=== PATIENT | male | born 1950 | race Caucasian/White ===

== ENCOUNTER 2019-08-14 12:47 | Outpatient (CLI) | payer OTHER, SELFPAY ==
--- NOTE | 2019-08-14 | CT_ITS ---
WS: [id number] CT NECK TECHNIQUE: Contrast-enhanced CT of the neck with coronal and sagittal reformatted images. CLINICAL INFORMATION: OTHER LESIONS OF ORAL MUCOSA COMPARISON: None. DLP: 3267.[address] scans at [facility] use at least one of these dose optimization techniques: automat ed exposure control; mA and/or kV adjustment per patient size (includes targeted exams where dose is matched to clinical indication); or iterative reconstruction. FINDINGS: Submandibular glands are normal. Parotid glands are normal. Tongue base is normal in appearance. Norm al posterior nasopharynx. Tonsillar calcifications. No evidence of supraglottic or glottic mass. Norm al thyroid gland. Normal parapharyngeal fat. No cervical lymphadenopathy. Mild chronic emphysematous changes in the [place] g apices. Moderate spondylitic changes with disc osteophyte complexes worse at C5-C7. Partially visua lized intracranial contents are normal. Mastoid air cells are well aerated. Paranasal sinuses are wel l aerated. CT/CT neck w con* 17912 IMPRESSION: 1. Salivary glands are normal. 2. No evidence of supraglottic or glottic mass. 3. No cervical lymphadenopathy. 4. Posterior nasopharynx and tongue base are normal.
[2019-08-14] MEDS: iohexol 300 mg/mL 100 mL Btl IV (13:22)
== END 2019-08-14 12:48 | disposition home or self-care (01) ==
PROVIDERS: Family Provider Internal Medicine; PCP Internal Medicine; Visit Provider Specialist
DX: K13.79 Other lesions of oral mucosa (principal)
CPT/HCPCS: 70491; Q9967

== ENCOUNTER 2019-08-31 13:49 | Inpatient (IN) | payer OTHER, MEDICARE, SELFPAY ==
[2019-08-31] VITALS (17 sets, daily range): BP systolic 82–131; BP diastolic 41–81; PULSE 47–146; RESP 14–26; TEMP 36.4–36.8; O2SAT 71–100; BMI 52.3
--- NOTE | 2019-08-31 13:59 | XR_ITS ---
WS: [id number] Portable AP upright chest, 08/31/2019 Clinical Data: bradycardia Comparison: Portable chest, 01/23/2014. Findings: No nodules, masses or effusions are seen. The heart is normal. The pulmonary vascularity is not increased. No pneumonia or pneumothorax is seen. There is a resuscitation paddles overlying the left lower chest. There is a monitor device overlying the medial midportion of the right chest. There is mild tortuosity of the aortic arch. XR/XR chest 1V portable 30630 Impression: Atherosclerosis.
[2019-08-31] MEDS: sodium chloride 0.9% 1,000 ML 999 ML IV (14:00)
--- NOTE | 2019-08-31 14:00 | ECG_ITS ---
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 Measurements Intervals [place] Rate: 140 P: [place]: -1 QRS: 43 QRSD: 91 T: 65 QT: 330 QTc: 505 Interpretive Statements ATRIAL FIBRILLATION WITH RAPID VENTRICULAR RESPONSE NONSPECIFIC ST & T-WAVE ABNORMALITY ABNORMAL RHYTHM ECG INTERPRETATION BASED ON A DEFAULT AGE OF 40 YEARS Compared to ECG 01/23/2014 07:54:02 T-wave abnormality now present Sinus bradycardia no longer present ST (T wave) deviation no longer present Electronically Signed On 08-31-2019 16:41:02 CDT by Bradley Weldon M.D. [id number] [email or web address]
--- NOTE | 2019-08-31 14:11 | ED_ITS ---
HPI - Seizure General: Chief Complaint: Chest Pain Stated Complaint: SEIZURES Time Seen by Provider: 08/31/19 13:49 History of Present Illness: HPI Narrative: This is a 69-year-old man presenting to the emergency department by ambulance today. EMS reports that they were called for multiple seizures. They witnessed a seizure that was associated with an episode of asystole on the monitor for approximately 5 to 10 seconds. The seizure is described as the patient becoming unresponsive and stiff, pulling in his arms and hands. His heart rate came up and he woke up with no intervention. He was not postictal afterward. The patient says this just started happening this morning. 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 He has had that for about 10 years. It is gradually been getting worse and causes him to have very severe pain in the back of his mouth on his tongue. He sees Dr. Schulte for this and recently had a CT scan showing no tumor. He denies any history of heart problems. On review of prior records he did have a Holter monitor in 2014 due to episodes of dizziness. He was in a sinus rhythm with no pauses at that time. He says he has tried pain medicine for the pain in his tongue but it has not helped at all. He is being referred to a neurologist to see if seizure medicine works but he has not been on anything yet. He is having very severe pain there today and that is actually his only complaint. complaint: seizure Onset (ago): day(s) (Today) Description of Episode: loss of consciousness and tonic-clonic movement Associated symptoms: Deny chest pain, chills, fever(s) or malaise Review of Systems General: Reports: 10 or more systems reviewed and unremarkable except in HPI and below Const: Denies: fever(s), chills, fatigue or malaise Eyes: Denies: change in vision ENMT: Reports: other (Severe tongue pain. He does say he has difficulty swallowing but it is only related to pain.); Denies: odynophagia Card: Denies: chest pain or swelling of feet/ankles Resp: Denies: dyspnea, productive cough or non-productive cough GI: Denies: abdominal pain, nausea or vomiting : Denies: flank pain Musc: Denies: neck pain or back pain Skin/Breast: Denies: rash Neuro: Denies: headache(s), numbness in extremities or weakness in extremities Jaya/Lymph: Denies: easy bruising or easy bleeding PFSH ED PFSH: Medical History Glossopharyngeal neuralgia Vaso vagal episode Surgical History H/O hernia repair Physical Exam Const: COMMON NORMALS: patient oriented x3, no limitations and alert GENERAL APPEARANCE: cooperative and in distress HENMT: HEAD & SCALP: normal to inspection FACE & SINUS: normal facial exam Eye: GENERAL EYE: appearance normal, both eyes and all related structures Neck/C-Spine: COMMON NORMALS: supple, no meningeal signs and no JVD Chest: COMMONS NORMALS: normal inspection of the chest Resp: COMMON NORMALS: normal respiratory effort, No use of accessory muscles and clear to auscultation bilaterally AUSCULTATION: clear to auscultation bilaterally Cardio: COMMON NORMALS: no JVD and No murmurs present (Cardio) OTHER: Rate and rhythm changed from bradycardia as low as 32 tachycardia in the 150s. GI: COMMON NORMALS: Normal to inspection, nondistended, normoactive bowel sounds present, Soft to palpation and non-tender INSPECTION: Yes normal to inspection AUSCULTATION: Yes normoactive bowel sounds PALPATION: Yes Soft to palpation Back/Pelvis: COMMON NORMALS: thoracic and lumbar spine normal to inspection Extremity: COMMON NORMALS: normal to inspection Neuro: COMMON NORMALS: patient oriented x3, moves all extremities, no focal motor deficits and no sensory deficits noted SENSORIUM/ORIENTATION: Yes alert MENINGEAL SIGNS: Yes no meningeal signs Psych: COMMON NORMALS: mental status grossly normal, cooperative and normal affect Skin: COMMON NORMALS: no rashes or lesions noted and turgor normal GENERAL SKIN EXAM: no rashes or lesions noted and turgor normal Course ED course: Troponin was negative at 14. Second troponin is pending. Lactate was 1.8. Magnesium 1.9. CBC was normal. Chemistry was normal except for a slightly low CO2 at 19. Chest x-ray unremarkable. Will consult cardiology and likely admit to the hospitalist. Reevaluation(s): Reevaluation #1: The patient was noted to have changed back to a sinus rhythm. His rate was approximately 49-50. He seemed to be resting quietly and then unexpectedly had a pause of about 12 seconds of asystole. During that time he became stiff and had grunting respirations. He spontaneously went back into a rapid A. fib. Now, about 5 minutes later he is back in a sinus bradycardia. He is admitted to the ICU and is waiting for transport. Time: 16:16 Reevaluation #2: Patient had a couple of episodes similar to the one described in reevaluation #1. These were caught on the monitor. Dr. Abel came to the ED to see the patient and he is being admitted to the hospitalist to the ICU. Prior to going to the ICU the patient reported that his pain had completely resolved and he was very grateful for that. Vital Signs: Vital signs: Vital Signs Temperature 98.3 F 08/31/19 18:54 Pulse Rate 65 08/31/19 21:14 Respiratory Rate 16 08/31/19 21:14 Blood Pressure 104/57 08/31/19 21:14 Pulse Oximetry 97 08/31/19 21:14 MDM - Seizure MDM Narrative: Medical decision making narrative: Patient in obvious pain from his glossopharyngeal neuralgia. Heart rate going between 30 and 150 in the ED. He has not had any further episodes of clinically significant pauses and no further seizure type activity. However he did have multiple episodes at home and one was witnessed by EMS. He does not have a history of cardiac problems. He is in atrial fibrillation today. I am treating him with fosphenytoin IV for his neuralgia hoping that that will help. I am also can give him some hydromorphone for pain. Is not clear exactly how these 2 diagnoses are related but he will get a cardiology consultation for his new onset A. fib and apparently sick sinus syndrome. Lab Data: Labs: Lab Results 08/31/19 08/31/19 08/31/19 Range/Units 14:08 14:08 14:08 WBC 5.3 (4.0-10.0) 10^3/ uL RBC 4.93 (4.1-5.3) 10^6/u L Hgb 14.5 (11.7-16.6) g/dL Hct 46.2 (42.0-52.0) % MCV 93.7 (80-94) fL MCH 29.4 (28.0-34.0) pg MCHC 31.4 (30.0-36.0) g/dL RDW 12.8 (12.1-15.1) % Plt Count 159 (130-400) 10^3/c mm MPV 9.9 (7.4-10.4) fL Neut % (Auto) 68.5 % Lymph % (Auto) 28.5 % Beauregard % (Auto) 2.4 % Eos % (Auto) 0.0 % Baso % (Auto) 0.4 % Neut # (Auto) 3.65 (1.8-7.7) 10^3/u L Lymph # (Auto) 1.5 (0.8-4.8) 10^3/u L Beauregard # (Auto) 0.1 L (0.2-0.9) 10^3/u L Eos # (Auto) 0.0 (0.0-0.8) 10^3/u L Baso # (Auto) 0.0 (0.0-0.1) 10^3/u L Nucleated RBC % (a uto) 0 % Nucleated RBCs # 0.0 /100WBC PT 13.50 H (10.5-13.3) SECO NDS INR 1.00 (0.8-1.2) Sodium 139 (136-145) mmol/L Potassium 4.0 (3.5-5.1) mmol/L Chloride 106 (98-107) mmol/L Carbon Dioxide 19 L (22-29) mmol/L Anion Gap 18.0 (5-19) BUN 11 (8-23) mg/dL Creatinine 1.0 (0.7-1.2) mg/dL GFR Calculation 73.9 L (90-130) mL/min Glucose 108 (65-115) mg/dL Calculated Osmolal ity 285 (285-295) mOsm/k g Lactate (0.5-2.2) mmol/L Calcium 9.5 (8.5-10.5) mg/dL Magnesium 1.9 (1.7-2.3) mg/dL Iron (59-158) ug/dL TIBC mcg/dl % Saturation (20-50) % Unsat Iron Binding (112-347) ug/dL Total Bilirubin 0.7 (0.15-1.2) mg/dL AST 16 (0-40) U/L ALT 15 (0-41) U/L Alkaline Phosphata se 57 (40-130) IU/L Troponin T Baselin e (0-15) ng/L NT-Pro-B Natriuret Pep (0-125) pg/mL Total Protein 6.5 L (6.6-8.7) g/dL Albumin 4.2 (3.5-5.2) g/dL Globulin 2.3 (1.3-4.6) g/dL Lipase 18 (13-60) U/L TSH (0.27-4.20) uIU/ mL Prolactin (4.0-15.2) ng/mL 08/31/19 08/31/19 08/31/19 Range/Units 14:08 14:08 14:08 WBC (4.0-10.0) 10^3/ uL RBC (4.1-5.3) 10^6/u L Hgb (11.7-16.6) g/dL Hct (42.0-52.0) % MCV (80-94) fL MCH (28.0-34.0) pg MCHC (30.0-36.0) g/dL RDW (12.1-15.1) % Plt Count (130-400) 10^3/c mm MPV (7.4-10.4) fL Neut % (Auto) % Lymph % (Auto) % Beauregard % (Auto) % Eos % (Auto) % Baso % (Auto) % Neut # (Auto) (1.8-7.7) 10^3/u L Lymph # (Auto) (0.8-4.8) 10^3/u L Beauregard # (Auto) (0.2-0.9) 10^3/u L Eos # (Auto) (0.0-0.8) 10^3/u L Baso # (Auto) (0.0-0.1) 10^3/u L Nucleated RBC % (a uto) % Nucleated RBCs # /100WBC PT (10.5-13.3) SECO NDS INR (0.8-1.2) Sodium (136-145) mmol/L Potassium (3.5-5.1) mmol/L Chloride (98-107) mmol/L Carbon Dioxide (22-29) mmol/L Anion Gap (5-19) BUN (8-23) mg/dL Creatinine (0.7-1.2) mg/dL GFR Calculation (90-130) mL/min Glucose (65-115) mg/dL Calculated Osmolal ity (285-295) mOsm/k g Lactate 1.8 (0.5-2.2) mmol/L Calcium (8.5-10.5) mg/dL Magnesium (1.7-2.3) mg/dL Iron 65 (59-158) ug/dL TIBC 202 mcg/dl % Saturation 32.1 (20-50) % Unsat Iron Binding 137 (112-347) ug/dL Total Bilirubin (0.15-1.2) mg/dL AST (0-40) U/L ALT (0-41) U/L Alkaline Phosphata se (40-130) IU/L Troponin T Baselin e 14 (0-15) ng/L NT-Pro-B Natriuret Pep (0-125) pg/mL Total Protein (6.6-8.7) g/dL Albumin (3.5-5.2) g/dL Globulin (1.3-4.6) g/dL Lipase (13-60) U/L TSH (0.27-4.20) uIU/ mL Prolactin 16.07 H (4.0-15.2) ng/mL / Range/Units 14:08 WBC (4.0-10.0) 10^3/ uL RBC (4.1-5.3) 10^6/u L Hgb (11.7-16.6) g/dL Hct (42.0-52.0) % MCV (80-94) fL MCH (28.0-34.0) pg MCHC (30.0-36.0) g/dL RDW (12.1-15.1) % Plt Count (130-400) 10^3/c mm MPV (7.4-10.4) fL Neut % (Auto) % Lymph % (Auto) % Beauregard % (Auto) % Eos % (Auto) % Baso % (Auto) % Neut # (Auto) (1.8-7.7) 10^3/u L Lymph # (Auto) (0.8-4.8) 10^3/u L Beauregard # (Auto) (0.2-0.9) 10^3/u L Eos # (Auto) (0.0-0.8) 10^3/u L Baso # (Auto) (0.0-0.1) 10^3/u L Nucleated RBC % (a uto) % Nucleated RBCs # /100WBC PT (10.5-13.3) SECO NDS INR (0.8-1.2) Sodium (136-145) mmol/L Potassium (3.5-5.1) mmol/L Chloride (98-107) mmol/L Carbon Dioxide (22-29) mmol/L Anion Gap (5-19) BUN (8-23) mg/dL Creatinine (0.7-1.2) mg/dL GFR Calculation (90-130) mL/min Glucose (65-115) mg/dL Calculated Osmolal ity (285-295) mOsm/k g Lactate (0.5-2.2) mmol/L Calcium (8.5-10.5) mg/dL Magnesium (1.7-2.3) mg/dL Iron (59-158) ug/dL TIBC mcg/dl % Saturation (20-50) % Unsat Iron Binding (112-347) ug/dL Total Bilirubin (0.15-1.2) mg/dL AST (0-40) U/L ALT (0-41) U/L Alkaline Phosphata se (40-130) IU/L Troponin T Baselin e (0-15) ng/L NT-Pro-B Natriuret Pep 990 H (0-125) pg/mL Total Protein (6.6-8.7) g/dL Albumin (3.5-5.2) g/dL Globulin (1.3-4.6) g/dL Lipase (13-60) U/L TSH 1.32 (0.27-4.20) uIU/ mL Prolactin (4.0-15.2) ng/mL Discharge Plan Discharge Patient Disposition: Admitted As Inpatient Admit Provider: Ulises Valle Clinical Impression: Cardiac syncope, Glossopharyngeal neuralgia Condition: Stable Referrals: Andrei Sagastume [Primary Care Provider] - Discharge Date/Time: 08/31/19 18:55 Coding Level of Care Code ED Swimming Professor for Chg Fwd Exam Comprehensive
[2019-08-31 14:14] LABS: Basophils % 0.4 %; Hematocrit 46.2 % (42.0-52.0); Hemoglobin 14.5 g/dL (11.7-16.6); Lymphocytes # 1.5 10^3/uL (0.8-4.8); Lymphocytes % 28.5 %; Mean Corpuscular HGB Conc 31.4 g/dL (30.0-36.0); Mean Corpuscular Hemoglobin 29.4 pg (28.0-34.0); Mean Corpuscular Volume 93.7 fL (80-94); Mean Platelet Volume 9.9 fL (7.4-10.4); Monocytes # 0.1 10^3/uL (0.2-0.9); Monocytes % 2.4 %; Neutrophils # 3.65 10^3/uL (1.8-7.7); Neutrophils % 68.5 %; Nucleated Red Blood Cells % 0 %; Platelet Count 159 10^3/cmm (130-400); Red Blood Count 4.93 10^6/uL (4.1-5.3); Red Cell Distribution Width 12.8 % (12.1-15.1); White Blood Count 5.3 10^3/uL (4.0-10.0)
--- NOTE | 2019-08-31 14:22 | PC.NURSE ---
Patient connected to zoll monitor with combo pads.
[2019-08-31] MEDS: fosphenytoin 1,000 MG in sodium chloride 0.9% (100 ml) 100 ML 200 MG IV (14:28)
--- NOTE | 2019-08-31 14:28 | PC.NURSE ---
Read and agree with assessment.
[2019-08-31 14:31] LABS: Alanine Aminotransferase 15 U/L (0-41); Albumin Level 4.2 g/dL (3.5-5.2); Alkaline Phosphatase 57 IU/L (40-130); Aspartate Amino Transferase 16 U/L (0-40); Blood Urea Nitrogen 11 mg/dL (8-23); Calcium 9.5 mg/dL (8.5-10.5); Carbon Dioxide 19 mmol/L (22-29); Chloride 106 mmol/L (98-107); Globulin 2.3 g/dL (1.3-4.6); Glomerular Filtration Rate 73.9 mL/min (90-130); Glucose 108 mg/dL (65-115); Lactate (Lactic Acid level) 1.8 mmol/L (0.5-2.2); Lipase 18 U/L (13-60); Magnesium 1.9 mg/dL (1.7-2.3); Osmolality Calculated 285 mOsm/kg (285-295); Sodium 139 mmol/L (136-145); Total Bilirubin 0.7 mg/dL (0.15-1.2); Total Protein 6.5 g/dL (6.6-8.7)
[2019-08-31 14:34] LABS: Troponin(5th) Baseline 14 ng/L (0-15)
[2019-08-31] MEDS: ondansetron 2 mg/ML SDV 2 mL 4 MG IVP (14:54)
[2019-08-31] MEDS: HYDROmorphone 1 mg/mL INJ 1 mL 0.5 MG IVP ×2 (14:54→20:33)
--- NOTE | 2019-08-31 15:57 | USCV_ITS ---
Mohan Monzon Age: 69 Gender: M : 1950 Exam Date: 08/31/2019 16:08 Ordering Phys: Ulises Valle MD Technologist: Jeffrey Ospina Exam Location: [facility] [place] Indication: AFIB WITH PAUSE BP: / HR: Rhythm: Sinus Technical Quality: Very technically difficult study MEASUREMENTS (Male / Female) Normal Values FINDINGS Left Ventricle Right Ventricle Right Atrium Left Atrium Mitral Valve Aortic Valve Tricuspid Valve Pulmonic Valve Pericardium Aorta CONCLUSIONS Please note that this is a limited echo due to poor quality and suboptimal images therefore accurate detail of the study is not possible 1-Low normal left ventricle size and ejection fraction estimated ejection fraction 50%. 2-There is no pericardial effusion. 3-There are no prior echocardiogram studies to compare. Tab Rivas MD (Electronically Signed) Final Date: 31 August 2019 20:09 S
--- NOTE | 2019-08-31 16:00 | ECG_ITS ---
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 Measurements Intervals [place] Rate: 135 P: SD: -1 QRS: 66 QRSD: 98 T: 82 QT: 318 QTc: 477 Interpretive Statements ATRIAL FIBRILLATION WITH RAPID VENTRICULAR RESPONSE NONSPECIFIC ST & T-WAVE ABNORMALITY ABNORMAL RHYTHM ECG Compared to ECG 08/31/2019 14:12:53 No significant changes Electronically Signed On 08-31-2019 16:44:07 CDT by Bradley Weldon M.D. [id number]
[2019-08-31 16:38] LABS: NT Pro B Type Natriuretic Pept 990 pg/mL (0-125); Thyroid Stimulating Hormone 1.32 uIU/mL (0.27-4.20)
[2019-08-31 17:12] LABS: Iron 65 ug/dL (59-158); Percent Saturation 32.1 % (20-50); Prolactin 16.07 ng/mL (4.0-15.2); Total Iron Binding Capacity 202 mcg/dl; Unsaturated Iron Binding 137 ug/dL (112-347)
--- NOTE | 2019-08-31 18:18 | PM.HP ---
Providers/Chief Complaint Admitting Physician: Ulises Valle MD Primary Care Provider: Andrie Sagastume Chief Complaint: SEIZURES History of Present Illness Mohan Monzon is a 69 year old male with no significant past medical history other than glossopharyngeal neuralgia which is been going on for 10 years but was recently diagnosed from an ENT doctor last week, history of vasovagal episode in 2013, history of orthostatic hypotension being managed conservatively, tinnitus, dry mouth. Patient states he was at his baseline health till today morning when while he was sitting in his chair trying to wear his shoes when he thinks he had passed out because he had dropped the glass from his hand and did not realize. After that patient went to bathroom and laid on the bed to rest. As per the patient his saw him having jittery movements while in the bed which he does not remember. At that time they called the EMS for patient to be brought to the ER. While being transported to the ER patient had an episode of 10-second asystole while in the ambulance which is also associated with jittery movements. Patient did not require any chest compressions or medications and came back in normal sinus rhythm. While in the ER patient went into atrial fibrillation with rapid ventricular response of heart rate going into 130s fluctuating down to 50s. Most of the episodes of bradycardia were preceded by sharp pain in his jaw. He denies of having any nausea, vomiting, dizziness, palpitation, diaphoresis, exertional dyspnea, exertional angina. While in the ER patient also had an episode of asystole which lasted for around 10 to 12 seconds and came back to normal sinus rhythm with heart rate of 50s. Patient did not require any medication but was unresponsive during that episode as well. During examination patient denies of having any nausea, vomiting, headache, shortness of breath, flulike symptoms, recent fevers, recent exposure to COVID-19. Review of Systems General: Reports: 10 or more systems reviewed and unremarkable except in HPI and below Const: Denies: fever(s), chills, body aches, change in appetite, change in weight, malaise, night sweats, diaphoresis, change in sleep pattern, daytime sleepiness or snoring Eyes: Denies: change in vision, blurry vision, photophobia, eye discomfort or eye discharge ENMT: Reports: dry mouth and tinnitus; Denies: throat pain, enlarged tonsils, hoarseness, mouth pain, oral sores, nasal congestion or post nasal drip Card: Reports: irregular heart rhythm; Denies: chest pain, palpitations, edema, swelling of feet/ankles, lightheadedness, syncope, pre-syncope, dyspnea on exertion, orthopnea, leg pain with exertion or acrocyanosis Resp: Denies: dyspnea, productive cough, non-productive cough, wheezing, stridor, pain on inspiration, change in phlegm color, hemoptysis or chest congestion GI: Denies: abdominal pain, nausea, vomiting, hematemesis, coffee ground emesis, dysphagia, heartburn, diarrhea, constipation, bloating, GI cramping, change in bowel habits, pain on defecation, hematochezia or melena : Denies: flank pain, difficulty urinating, dysuria, urinary frequency, urinary urgency, urinary hesitancy, urinary dribbling, difficulty starting urination, change in urine stream, nocturia or hematuria Musc: Denies: neck pain, back pain, extremity pain, joint pain, joint swelling, joint redness, joint stiffness or limited range of motion Neuro: Denies: headache(s), numbness in extremities, weakness in extremities, sensory changes, lack of coordination, difficulty walking, frequent falls, dizziness, vertigo, confusion, Slurred speech present, difficulty communicating thoughts or seizure-like activity Psych: Denies: anxiety, depression, mood swings, panic attacks, hopelessness or irritability Endo: Denies: polyuria, polydipsia, tired all the time, cold intolerance, excessive sweating, flushing or heat intolerance Jaya/Lymph: Denies: easy bruising or easy bleeding All/Imm: Denies: tongue swelling, facial swelling or acute wheezing Medications/Allergies Home Medications Medication Instructions Recorded Confirmed Last Taken Type amitriptyline 25 mg PO BEDTIME PRN 08/31/19 08/31/19 Unknown History cyclobenzaprine 10 mg PO TID PRN 08/31/19 08/31/19 Unknown History hydrocodone-acetaminophen 15 ml PO Q5H PRN 08/31/19 08/31/19 08/29/19 History tramadol [Ultram] 100 mg PO QID PRN 08/31/19 08/31/19 Unknown History Allergies Allergy/AdvReac Type Severity Reaction Status Date / Time fluticasone [From Flonase] Allergy Unknown Verified 08/31/19 14:44 prednisone Allergy Unknown Verified 08/31/19 14:44 PFSH Acute PFSH: Medical History Glossopharyngeal neuralgia Vaso vagal episode Surgical History H/O hernia repair Vitals/I&O/Wt Last Vital Signs Temp 97.6 F 08/31/19 14:15 Pulse 53 L 08/31/19 14:20 Resp 18 08/31/19 14:20 BP 112/56 08/31/19 14:20 Pulse Ox 71 L 08/31/19 14:20 Weight last 48 hrs Weight 180 kg Physical Exam Narrative: EXAM NARRATIVE: General: No acute distress, AO x3 HEENT: PERRLA, pupils bilaterally equal and reactive Chest: Normal vesicular breath sounds, no added sounds, equal good air entry bilaterally CVS: S1-S2 irregularly irregular, tachycardia, no gallops, no rubs Abdomen: Soft, nontender, no organomegaly, bowel sounds present Neuro: No focal deficits, no facial deformity, AO x3, power 5/5 in all limbs Data : 08/31/19 14:08 08/31/19 14:08 A&P Assessment and plan (1) Cardiac syncope: Status: Acute (2) Cardiac asystole: Status: Acute (3) Afib: Status: Acute (4) Glossopharyngeal neuralgia: Status: Acute Additional A&P Information Syncope: Most likely cardiac. Patient did have asystole while in the ambulance and also in the ER. Patient has history of vasovagal hypersensitivity. Patient has been complaining of glossopharyngeal pain which has been getting worse. Continue classroom monitor. Admit to ICU. Check troponins, TSH, proBNP echocardiogram to rule out structural abnormalities. If patient continues to have these episodes will have to discuss with cardiology regarding possible pacemaker implantation. Less likely that there was neurological. Most likely seizure-like activity because of asystole. Check prolactin. Patient was given fosphenytoin in the ER which would also help him with glossopharyngeal neuralgia. We will continue with oral phenytoin for now 200 mg daily. A. fib: Patient now running A. fib with RVR worsening into bradycardia with some pauses. For now we will hold off on any antiarrhythmics or node blocking agent. We will continue to monitor on telemetry. Code cart at bedside. 500 cc bolus followed with normal saline 100 cc/h. If patient continues to have A. fib for more than 48 hours will more likely have to discuss about anticoagulation. Patient does not have any history of tachybradycardia syndrome. Cardiology consult has been placed by ER. We will follow-up recommendations from Dr. Rivas. Glossopharyngeal neuralgia: Chronic problem. Because the event could be vasovagal will have a good pain control. Dilaudid 0.5 mg every 4 hours as needed, tramadol 100 mg p.o. every 4 hours as needed. Check HbA1c, TSH, lipid panel, iron panel. Full code. N.p.o. for now given the fact that patient might have's asystole again. Lovenox for DVT prophylaxis. Attestations Medical Necessity Statement*: More than 2 midnights for syncope, asystole Critical Care Time: Cardiac asystole, atrial fibrillation Critical Care Time (min): 80 Coding Level of Care Code Acute Animal Laboratory Technician for [facility] Fwd Diagnoses Cardiac syncope R55 Cardiac asystole I46.9 Afib I48.91 Glossopharyngeal neuralgia G52.1
--- NOTE | 2019-08-31 19:00 | PC.NURSE ---
Received report from ZEINA Toribio. Patient was brought to room by [facility] oysterman at 1850. Patient is stable and resting comfortably. Patient is having frequent episodes of extreme pain in mouth that lasts from 5-10 seconds. Vitals signs are remaining stable at this time. Will continue to monitor.
--- NOTE | 2019-08-31 19:07 | PM.CONSULT ---
Providers/Reason For Consult Consulting Physican/Specialty*: Cardiology Reason for Consult*: Sinoatrial failure Syncope Bradycardia New onset of A. fib Attending Physician: Ulises Valle MD Primary Care Provider: Andrei Sagastume History of Present Illness History of Present Illness Mohan Monzon is a 69 year old male past medical history significant for glossopharyngeal neuralgia, history of vasovagal syncope last one was in 2013, denies any prior history of coronary artery disease atrial fibrillation or heart block had episode of syncope while trying to drink water. He woke up and felt very fatigued. He laid down in the bed when his noticed jerking movements and called 911. According to EMS patient had seizure-like activity on telemetry monitoring he was noted to have 10 to 15 seconds of asystole. He was also noted to be in A. fib with RVR in the ER which is new for him. Patient had few episodes of glossopharyngeal neuralgia which leads to bradycardia as per ER staff. There is also documented 15-second asystole with loss of conscious noted in the ER, strip was also recorded however it was preceded with back of the tongue pain. When I was talking to the patient he had couple of episodes of neuralgia which slows his heart rate into 50s currently is in sinus rhythm. At one point heart rate was into 150s in the ER he was given IV fluid which slowed him down and now he is in sinus rhythm with heart rate of 70 bpm. Patient denies history of hypothyroidism ygaf-ypt-hydcccl medications history of tick bite and history of prior bradycardia's. Review of Systems General: Reports: 10 or more systems reviewed and unremarkable except in HPI and below Const: Denies: fever(s), chills, body aches, change in appetite, change in weight, fatigue, malaise, night sweats, diaphoresis, change in sleep pattern, daytime sleepiness or snoring Eyes: Denies: change in vision, blurry vision, photophobia, eye discomfort or eye discharge ENMT: Reports: dry mouth, tinnitus and other (Severe tongue pain. He does say he has difficulty swallowing but it is only related to pain.); Denies: throat pain, enlarged tonsils, odynophagia, hoarseness, mouth pain, oral sores, nasal congestion or post nasal drip Card: Reports: irregular heart rhythm; Denies: chest pain, palpitations, edema, swelling of feet/ankles, lightheadedness, syncope, pre-syncope, dyspnea on exertion, orthopnea, leg pain with exertion or acrocyanosis Resp: Denies: dyspnea, productive cough, non-productive cough, wheezing, stridor, pain on inspiration, change in phlegm color, hemoptysis or chest congestion GI: Denies: abdominal pain, nausea, vomiting, hematemesis, coffee ground emesis, dysphagia, heartburn, diarrhea, constipation, bloating, GI cramping, change in bowel habits, pain on defecation, hematochezia or melena : Denies: flank pain, difficulty urinating, dysuria, urinary frequency, urinary urgency, urinary hesitancy, urinary dribbling, difficulty starting urination, change in urine stream, nocturia or hematuria Musc: Denies: neck pain, back pain, extremity pain, joint pain, joint swelling, joint redness, joint stiffness or limited range of motion Skin/Breast: Denies: rash Neuro: Denies: headache(s), numbness in extremities, weakness in extremities, sensory changes, lack of coordination, difficulty walking, frequent falls, dizziness, vertigo, confusion, Slurred speech present, difficulty communicating thoughts or seizure-like activity Psych: Denies: anxiety, depression, mood swings, panic attacks, hopelessness or irritability Endo: Denies: polyuria, polydipsia, tired all the time, cold intolerance, excessive sweating, flushing or heat intolerance Jaya/Lymph: Denies: easy bruising or easy bleeding All/Imm: Denies: tongue swelling, facial swelling or acute wheezing Meds/Allergies Home Medications and Allergies Home Medications Medication Instructions Recorded Confirmed Last Taken Type amitriptyline 25 mg PO BEDTIME PRN 08/31/19 08/31/19 Unknown History cyclobenzaprine 10 mg PO TID PRN 08/31/19 08/31/19 Unknown History hydrocodone-acetaminophen 15 ml PO Q5H PRN 08/31/19 08/31/19 08/29/19 History tramadol [Ultram] 100 mg PO QID PRN 08/31/19 08/31/19 Unknown History Allergies Allergy/AdvReac Type Severity Reaction Status Date / Time fluticasone [From Flonase] Allergy Unknown Verified 08/31/19 14:44 prednisone Allergy Unknown Verified 08/31/19 14:44 PFSH Acute PFSH: Medical History Glossopharyngeal neuralgia Vaso vagal episode Surgical History H/O hernia repair Vitals/I&O/Wt Last Vital Signs Temp 97.6 F 08/31/19 14:15 Pulse 55 L 08/31/19 18:51 Resp 16 08/31/19 18:51 BP 113/75 08/31/19 18:51 Pulse Ox 98 08/31/19 18:51 Weight last 48 hrs Weight 396 lb 13.313 oz Physical Exam Narrative: EXAM NARRATIVE: GENERAL: Patient is alert, awake and oriented x3. NECK: No jugular vein distension. HEENT: No cyanosis. No icterus. No pallor. HEART: Regular S1 and S2. No murmur, rub or gallop. LUNGS: Clear to auscultate bilaterally. ABDOMEN: Soft, nontender and nondistended. Positive bowel sounds. No guarding, rebound or tenderness. CENTRAL NERVOUS SYSTEM: Grossly nonfocal. EXTREMITIES: Lower extremities without edema bilaterally. A&P Assessment and plan (1) Cardiac asystole: Patient has documented episodes of asystole most likely due to extreme vagal stimulation secondary to glossopharyngeal neuralgia and possible exaggerated gag reflex however cannot rule out intermittent heart block. We recommend ruling him out for reversible causes of bradycardia/asystole including electrolytes, hypothyroidism, meds. He will be monitored in the ICU. Status: Acute (2) Afib: Patient has new onset of A. fib radiation as he denies prior history of A. fib. Currently in sinus rhythm avoiding quyen zain however if required in case of RVR may can use short-acting quyen zain such as Cardizem Status: Acute Qualifiers: Atrial fibrillation type: paroxysmal Qualified Code(s): I48.0 - Paroxysmal atrial fibrillation (3) Syncope: Most likely secondary to vagal other causes of intermittent heart block need to be ruled out as above Status: Acute Qualifiers: Syncope type: unspecified Qualified Code(s): R55 - Syncope and collapse Coding Level of Care Code New Pt Acute Buttonhole Facer for Chg Fwd Patient Type New History Expanded Problem Focused Exam Expanded Problem Focused Medical Decision Making Moderate Complexity Diagnoses Cardiac asystole I46.9 Afib I48.0 Atrial fibrillation type: paroxysmal Syncope R55 Syncope type: unspecified
--- NOTE | 2019-08-31 20:00 | ECG_ITS ---
[facility] Test Date: 2019-09-01 Pat Name: Mohan Monzon Department: Room: ICU04 Gender: Male Bar Manager: RUDY : 1950 Requested By: Macey La Order Number: [id number] Gala MD: Tab Rivas M.D. Measurements Intervals [place] Rate: 54 P: 75 VT: 162 QRS: 65 QRSD: 96 T: 52 QT: 453 QTc: 430 Interpretive Statements SINUS BRADYCARDIA WITH MARKED SINUS ARRHYTHMIA NONSPECIFIC T-WAVE ABNORMALITY Compared to ECG 08/31/2019 15:33:09 Atrial fibrillation no longer present T-wave abnormality still present Electronically Signed On 09-01-2019 19:19:18 CDT by Tab Rivas M.D. [id number]
[2019-08-31] MEDS: sodium chloride 0.9% 500 ML 999 ML IV (20:21)
[2019-08-31] MEDS: enoxaparin 40 mg/0.4 mL Syringe SUBCUT (20:35)
[2019-08-31] MEDS: sodium chloride 0.9% 1,000 ML 100 ML IV (20:35)
[2019-08-31] MEDS: ipratropium-albuterol 3 mL Neb INHALATION (20:39)
[2019-08-31 23:04] LABS: Amphetamines Screen Urine Negative (Negative); Barbiturates Screen Urine Positive (Negative); Benzodiazepines Screen Urine Negative (Negative); Cocaine Screen Urine Negative (Negative); Opiate Screen Urine Negative (Negative); PCP Screen Urine Negative (Negative); THC Screen Urine Negative (Negative)
[2019-08-31 23:11] LABS: Bacteria Urine TRACE; Bilirubin Urine Neg (NEGATIVE); Blood Urine Neg (Negative); Glucose Urine UA Norm (Normal); Hyaline Casts Urine 0-4; Ketones Urine 2+ (Negative); Leukocyte Esterase Urine Negative (Negative); Nitrate Urine Negative (Negative); Protein Urine Neg (Negative); Specific Gravity, Urine 1.025 (1.005-1.030); Urine Appearance Clear (CLEAR); Urine Color Yellow (Yellow); Urobilinogen Urine 1 mg/dL (Negative); pH Urine 5 (5-7)
[2019-09-01] VITALS (16 sets, daily range): BP systolic 112–163; BP diastolic 54–103; PULSE 45–59; RESP 6–19; TEMP 36.9–37; O2SAT 91–99
[2019-09-01] MEDS: HYDROmorphone 1 mg/mL INJ 1 mL 0.5 MG IVP (01:03)
[2019-09-01 05:24] LABS: Basophils # 0.1 10^3/uL (0.0-0.1); Basophils % 0.9 %; Eosinophils # 0.1 10^3/uL (0.0-0.8); Eosinophils % 0.8 %; Hematocrit 41.1 % (42.0-52.0); Hemoglobin 12.9 g/dL (11.7-16.6); Lymphocytes # 2.7 10^3/uL (0.8-4.8); Lymphocytes % 41.6 %; Mean Corpuscular HGB Conc 31.4 g/dL (30.0-36.0); Mean Corpuscular Hemoglobin 29.4 pg (28.0-34.0); Mean Corpuscular Volume 93.6 fL (80-94); Mean Platelet Volume 10.6 fL (7.4-10.4); Monocytes # 0.4 10^3/uL (0.2-0.9); Monocytes % 5.7 %; Neutrophils # 3.28 10^3/uL (1.8-7.7); Neutrophils % 50.8 %; Nucleated Red Blood Cells % 0 %; Platelet Count 153 10^3/cmm (130-400); Red Blood Count 4.39 10^6/uL (4.1-5.3); White Blood Count 6.5 10^3/uL (4.0-10.0)
[2019-09-01 05:38] LABS: Chol HDL Ratio 3.38 mg/dL (1.0-5.00); Cholesterol 115 mg/dL (0-200); HDL Cholesterol 34 mg/dL (60-100); LDL Cholesterol Calculated 69 mg/dL (50-129); Triglycerides 59 mg/dL (0-150); VLDL Cholestrol Calculation 12 mg/dL (0-30)
[2019-09-01 05:45] LABS: Alanine Aminotransferase 12 U/L (0-41); Albumin Level 3.4 g/dL (3.5-5.2); Alkaline Phosphatase 48 IU/L (40-130); Anion Gap 11.7 (5-19); Aspartate Amino Transferase 12 U/L (0-40); Blood Urea Nitrogen 9 mg/dL (8-23); Calcium 8.4 mg/dL (8.5-10.5); Carbon Dioxide 23 mmol/L (22-29); Chloride 111 mmol/L (98-107); Globulin 2.3 g/dL (1.3-4.6); Glomerular Filtration Rate 83.4 mL/min (90-130); Glucose 82 mg/dL (65-115); Osmolality Calculated 289 mOsm/kg (285-295); Potassium 3.7 mmol/L (3.5-5.1); Sodium 142 mmol/L (136-145); Total Bilirubin 0.5 mg/dL (0.15-1.2); Total Protein 5.7 g/dL (6.6-8.7)
[2019-09-01 06:08] LABS: Estmated Average Glucose 100; Hemoglobin A1C 5.1 % (4.0-6.0)
[2019-09-01] MEDS: sodium chloride 0.9% 1,000 ML 100 ML IV ×2 (07:22→17:59)
--- NOTE | 2019-09-01 09:42 | CT_ITS ---
WS: [id number] CT NECK TECHNIQUE: Noncontrast CT of the neck with coronal and sagittal reformatted images. CLINICAL INFORMATION: r/o mass COMPARISON: CT neck August 14, 2019 DLP: 729.[address] scans at [facility] use at least one of these dose optimization techniques: automat ed exposure control; mA and/or kV adjustment per patient size (includes targeted exams where dose is matched to clinical indication); or iterative reconstruction. FINDINGS: Images at the tongue base are degraded due to beam hardening artifact from dental hardware. Submandibular glands are normal. Parotid glands are normal. Tongue base is normal in appearance where visualized. Normal posterior nasopharynx. Tonsillar calcifications. No evidence of supraglottic or glottic mass. Normal thyroid gland. Normal parapharyngeal fat. No cerv ical lymphadenopathy. Mild chronic emphysematous changes in the lung apices. Moderate spondylitic marly nges cervical spine. Partially visualized intracranial contents are normal. Mastoid air cells are wel l aerated. Paranasal sinuses are well aerated. CT/CT neck wo con [id number] IMPRESSION: 1. No evidence of supraglottic or glottic mass. 2. No cervical lymphadenopathy. 3. Salivary glands are normal. 4. Normal noncontrast neck
--- NOTE | 2019-09-01 10:04 | P.PN_ITS ---
Subjective Subjective: Interval history: No acute events overnight. On examination today morning patient is complaining of tongue pain. He denies of having any nausea, vomiting, dizziness, headache, palpitations. Patient's heart rate has been fluctuating in 50s. Going down to 30s whenever he would have pain. Vitals/I&O/Wt Last Vital Signs Temp 98.5 F 09/01/19 08:00 Pulse 45 L 09/01/19 08:00 Resp 12 09/01/19 08:00 BP 133/59 09/01/19 08:00 Pulse Ox 99 09/01/19 08:00 08/31/19 09/01/19 09/01/19 22:59 06:59 14:59 Intake Total 1000 / 1000 Output Total 300 / 300 Balance 700 / 700 Weight last 48 hrs Weight 89.811 kg Weight 89.811 kg Weight 180 kg Physical Exam Narrative: EXAM NARRATIVE: General: No acute distress, AO x3 HEENT: PERRLA, pupils bilaterally equal and reactive Chest: Normal vesicular breath sounds, no added sounds, equal good air entry bilaterally CVS: S1-S2 irregularly irregular, tachycardia, no gallops, no rubs Abdomen: Soft, nontender, no organomegaly, bowel sounds present Neuro: No focal deficits, no facial deformity, AO x3, power 5/5 in all limbs Data : 09/01/19 04:40 09/01/19 04:40 A&P Assessment and plan (1) Cardiac syncope: Status: Acute (2) Cardiac asystole: Status: Acute (3) Afib: Status: Acute Qualifiers: Atrial fibrillation type: paroxysmal Qualified Code(s): I48.0 - Paroxysmal atrial fibrillation (4) Glossopharyngeal neuralgia: Status: Acute Additional A&P Information Syncope: Most likely cardiac. Patient did have asystole while in the ambulance and also in the ER. Patient has history of vasovagal hypersensitivity. Patient has been complaining of glossopharyngeal pain which has been getting worse. Continue associate juvenile court judge. Continue with ICU care. TSH, proBNP, troponin results appreciated. Echocardiogram awaited. Case discussed with Dr. Rivas. Recommendations appreciated. A. fib: At present bradycardic. For now we will hold off on any antiarrhythmics or node blocking agent because of bradycardia. We will continue to monitor on telemetry. Code cart at bedside. Patient most likely require anticoagulation because of persistent atrial fibrillation. For now we will hold off on anticoagulation in case patient requires PPI placement. Can discharge patient on Eliquis. Glossopharyngeal neuralgia: Chronic problem. Because the event could be vasovagal will have a good pain control. Check ESR, neck CT to rule out any mass, MR brain to rule out any mass. Given acute pain will give IV phenytoin 100 mg once followed by carbamazepine 300 mg 3 times daily and gabapentin 200 mg 3 times a day. Case discussed with Dr. Vera. Patient will follow up with Dr. Vera as an outpatient. Full code. Clear liquid diet. Lovenox for DVT prophylaxis. Attestations Medical Necessity Statement*: Persistent bradycardia, atrial fibrillation, glossopharyngeal neuralgia, cardiac asystole Time Spent in Patient Care: Greater than 35 minutes (>than 50% of time spent in counselling and/or direct pt care on unit) . Coding Level of Care Code Acute Wedding Coordinator for Tonie Machado Diagnoses Cardiac syncope R55 Cardiac asystole I46.9 Afib I48.0 Atrial fibrillation type: paroxysmal Glossopharyngeal neuralgia G52.1
[2019-09-01] MEDS: carBAMazepine 200 mg Tablet 300 MG PO ×2 (11:04→20:59)
[2019-09-01] MEDS: gabapentin 100 mg Capsule 200 MG PO ×2 (11:41→20:59)
[2019-09-01 11:48] LABS: Erythrocyte Sedimentation Rate 5 mm/hr (0-10)
--- NOTE | 2019-09-01 14:49 | P.PN_ITS ---
Subjective Subjective: Interval history: Patient had no pause in the night however bradycardia down into 30s while awake correlated with glossopharyngeal neuralgia have not passed out. Vitals/I&O/Wt Last Vital Signs Temp 98.4 F 09/01/19 12:27 Pulse 50 L 09/01/19 14:34 Resp 16 09/01/19 14:34 BP 136/68 09/01/19 14:34 Pulse Ox 95 09/01/19 14:34 08/31/19 09/01/19 09/01/19 22:59 06:59 14:59 Intake Total 1000 / 1000 172 / 172 Output Total 300 / 300 350 / 350 Balance 700 / 700 -178 / -178 Weight last 48 hrs Weight 198 lb Weight 198 lb Weight 396 lb 13.313 oz Physical Exam Narrative: EXAM NARRATIVE: GENERAL: Patient is alert, awake and oriented x3. NECK: No jugular vein distension. HEENT: No cyanosis. No icterus. No pallor. HEART: Regular S1 and S2. No murmur, rub or gallop. LUNGS: Clear to auscultate bilaterally. ABDOMEN: Soft, nontender and nondistended. Positive bowel sounds. No guarding, rebound or tenderness. CENTRAL NERVOUS SYSTEM: Grossly nonfocal. EXTREMITIES: Lower extremities without edema bilaterally. Data : 09/01/19 04:40 09/01/19 04:40 A&P Assessment and plan (1) Afib: Slow ventricular response continue to monitor Status: Acute Qualifiers: Atrial fibrillation type: paroxysmal Qualified Code(s): I48.0 - Paroxysmal atrial fibrillation (2) Syncope: Most likely secondary to exaggerated vagal response leading to significant long pauses. Patient has been started on medicine for neurology we will assess him over next 48 hours to decide whether he needs a pacemaker or not. Status: Acute Qualifiers: Syncope type: unspecified Qualified Code(s): R55 - Syncope and collapse Attestations Medical Necessity Statement*: Require continuation hospitalization for above defined care. Coding Level of Care Code Established Pt Acute Door Manager for Tonie Machado Patient Type Established History Expanded Problem Focused Exam Expanded Problem Focused Medical Decision Making Moderate Complexity Diagnoses Afib I48.0 Atrial fibrillation type: paroxysmal Syncope R55 Syncope type: unspecified
[2019-09-01] MEDS: enoxaparin 40 mg/0.4 mL Syringe SUBCUT (21:00)
[2019-09-02] VITALS (25 sets, daily range): BP systolic 114–156; BP diastolic 58–99; PULSE 50–81; RESP 0–26; TEMP 36.8–37.2; O2SAT 90–98
[2019-09-02] MEDS: gabapentin 100 mg Capsule 200 MG PO ×3 (07:05→21:52)
--- NOTE | 2019-09-02 07:11 | PC.NURSE ---
Patient asked to have meds . Called Dr. Waite and he said ok to give gabapentin scheduled at 0900 now.
[2019-09-02] MEDS: sodium chloride 0.9% 1,000 ML 100 ML IV ×2 (08:06→17:37)
[2019-09-02] MEDS: carBAMazepine 200 mg Tablet 300 MG PO ×3 (08:06→21:52)
[2019-09-02] MEDS: HYDROmorphone 1 mg/mL INJ 1 mL 0.5 MG IVP (08:07)
--- NOTE | 2019-09-02 10:15 | MR_ITS ---
WS: [id number] MRI HEAD WITHOUT CONTRAST TECHNIQUE: Sagittal T1, T2 axial, T2 axial FLAIR, axial and coronal T1 images, axial susceptibility w eighted imaging, axial diffusion weighted images, and coronal T2 images were obtained. CLINICAL INFORMATION: r/o mass COMPARISON: CT head and CT neck September 01, 2019 FINDINGS: No evidence of restricted diffusion to suggest acute ischemia. Ventricular system and basal cisterns are patent. Minimal small vessel changes. Mild parenchymal volume loss. Normal posterior fossa. Tiny chronic lacunar infarct right cerebellum dorsally. Normal vascular flow voids at the skull base. No e xtra-axial fluid collections. No evidence of mass or mass effect. Paranasal sinuses and mastoid air cells well aerated. No hemosiderin on the susceptibility weighted i mages. Normal optic chiasm and pituitary infundibulum. Meckel's cave is normal in appearance. Normal cavernous sinuses. Mild to moderate symmetric atrophy involving the temporal lobes and hippocampal fo rmations. Proximal 7th and 8th cranial nerves appear normal. Normal trigeminal nerve root entry zones . Brainstem appears normal. 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 MR/MR head wo con* [id number] IMPRESSION: 1. No evidence of restricted diffusion to suggest acute ischemia. 2. Mild small vessel changes with moderate global volume loss. 3. Mild to moderate symmetric atrophy involving the temporal lobes and hippoca mpal formations. 4. 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
--- NOTE | 2019-09-02 10:59 | P.PN_ITS ---
Subjective Subjective: Interval history: No events overnight. Heart rate has been fluctuating in low 50s and dropping down to mid 30s overnight while sleeping. He denies of having any nausea, vomiting, headache. He continues to have pain in his tongue this is better than before. Patient has remained hemodynamically stable. Vitals/I&O/Wt Last Vital Signs Temp 98.5 F 09/01/19 21:04 Pulse 53 L 09/02/19 05:00 Resp 16 09/02/19 08:07 BP 138/78 09/02/19 05:00 Pulse Ox 93 09/02/19 08:07 09/01/19 09/02/19 09/02/19 22:59 06:59 14:59 Intake Total 1360 / 1532 1000 / 2532 Output Total 650 / 1000 350 / 350 Balance 710 / 532 1000 / 1532 -350 / -350 Weight last 48 hrs Weight 89.811 kg Weight 89.811 kg Weight 89.811 kg Weight 180 kg Physical Exam Narrative: EXAM NARRATIVE: General: No acute distress, AO x3 HEENT: PERRLA, pupils bilaterally equal and reactive Chest: Normal vesicular breath sounds, no added sounds, equal good air entry bilaterally CVS: S1-S2 irregularly irregular, tachycardia, no gallops, no rubs Abdomen: Soft, nontender, no organomegaly, bowel sounds present Neuro: No focal deficits, no facial deformity, AO x3, power 5/5 in all limbs Data : 09/01/19 04:40 09/01/19 04:40 A&P Assessment and plan (1) Cardiac syncope: Status: Acute (2) Cardiac asystole: Status: Acute (3) Afib: Status: Acute Qualifiers: Atrial fibrillation type: paroxysmal Qualified Code(s): I48.0 - Paroxysmal atrial fibrillation (4) Glossopharyngeal neuralgia: Status: Acute Additional A&P Information Syncope: Most likely cardiac. Patient did have asystole while in the ambulance and also in the ER. Patient has history of vasovagal hypersensitivity. Patient has been complaining of glossopharyngeal pain which has been getting worse. Continue cardiac monitor technician. Continue with ICU care. Given the fact that patient possibly will continue to have the glossopharyngeal pain it is highly likely that patient will continue to have vagal sensitivity causing him to have possible asystole in future. Will discuss with Dr. Rivas that patient most likely requires pacemaker insertion. Case discussed with Dr. Rivas. Recommendations appreciated. A. fib: At present bradycardic. For now we will hold off on any antiarrhythmics or node blocking agent because of bradycardia. We will continue to monitor on telemetry. Code cart at bedside. Patient most likely require anticoagulation because of persistent atrial fibrillation. For now we will hold off on anticoagulation in case patient requires PPI placement. Can discharge patient on Eliquis. Glossopharyngeal neuralgia: Chronic problem. Because the event could be vasovagal will have a good pain control. ESR, CT neck and MR head results appreciated. Continue with carbamazepine 300 mg 3 times daily and gabapentin 200 mg 3 times daily. Case discussed with Dr. Vera. Patient has an appointment to see Dr. Vera on September 21. Full code. Clear liquid diet. Lovenox for DVT prophylaxis. Attestations Medical Necessity Statement*: Vagal syncope, cardiac asystole, glossopharyngeal neuralgia Time Spent in Patient Care: Greater than 35 minutes (>than 50% of time spent in counselling and/or direct pt care on unit) . Coding Level of Care Code Acute Retail Bakery Manager for [facility] Fwd Diagnoses Cardiac syncope R55 Cardiac asystole I46.9 Afib I48.0 Atrial fibrillation type: paroxysmal Glossopharyngeal neuralgia G52.1
--- NOTE | 2019-09-02 15:17 | PC.NURSE ---
0700 while in report patient yelled and moaned about the pain in his left back tongue. night nurse administered med late in his opinion feeling it should be dosed at 0500 if he got it at 2100 last night. gabapentin was given early. 0815 patient resting/asleep and was treated with dilaudid as ordered prior to breakfast. he repeated his fears that he would not get his meds on time. pharmacy was called and dosing switched to his needs. he also wants his tegratol to be given at the same time . 1000 patient reminds me that we are to go to mri. he was informed that transportation was being secured at this time and 10 min later ems came for transport. patient had been wearing his hernia strap, his underware and his jeans in bed since arrival and was afraid to leave them in the room for the mri since someone lost his shirt. er was contacted for said lost shirt. it was not found but patient was given a shirt to wear when he does eventually leave the hospital. 1300 drs discussed his need for a pacemaker and patient had to think about it information packet given from [facility]. 1410 patient asked for his meds to be given. explained that it may be 1430 as i have another patient to be seen. augustoo explained the hour before and and after due times so that i could give him both meds at the same time. patient appears to agree with the pacemaker idea at this time.
--- NOTE | 2019-09-02 15:27 | PC.NURSE ---
while patient in pain at 0700 his hr went down to 49 that i saw. 1530 patient would like to talk to dr sauceda about the pacemaker.
--- NOTE | 2019-09-02 16:10 | PC.NURSE ---
patient wished that dr sauceda know he is ready to talk pacemaker. dr sauceda was called and informed.
--- NOTE | 2019-09-02 18:08 | P.CONIM_ITS ---
Providers/Reason For Consult Consulting Physican/Specialty*: Yoni Cha MD/cardiology Reason for Consult*: Patient with a syncope/bradycardia Attending Physician: Ulises Valle MD Primary Care Provider: Andrei Sagastume History of Present Illness History of Present Illness Mohan Monzon is a 69 year old male is admitted to the hospital with recurrent episodes of syncope. He is diagnosed with glossopharyngeal neuralgia. He had the first episode of syncope in 2013 and the second episode on last Saturday. Both episodes happened with severe neurologic pain. He was found to have a 12- second pause on the telemetry with the neuralgic pain, in the emergency room. The EMS noted several pauses of 5 to 10 seconds on the telemetry, while the patient was having the seizure. He also had several episodes of bradycardia with a severe pain. He also had episodes of atrial fibrillation with a heart rate in the 150s, in the emergency room. Currently he appears to be in sinus rhythm with occasional episodes sinus bradycardia with a heart rate in the 50s in the ICU. He has no neurologic pain at this time. Denies any other specific complaints. Review of Systems Narrative: CONSTITUTIONAL: No fever or chills. EYES: No blurring of vision or other visual disturbances lately. ENT: No hoarseness of voice, auditory disturbances or sore throat. CARDIOVASCULAR: As mentioned above. RESPIRATORY: No significant cough. GASTROINTESTINAL: Pain in the left side of the tongue and in the pharyngeal area GENITOURINARY: No dysuria or hematuria. INTEGUMENTARY: No skin rashes or history of skin cancer. NEURO: No transient ischemic attacks or amaurosis. PSYCHIATRIC: No history of psychosis or major depression. HEMATOLOGIC: No bleeding disorders or significant anemia. ENDOCRINE: No history of polyuria or polydipsia. MUSCULOSKELETAL: No recent joint pain or swelling. ALLERGY/IMMUNOLOGY: As mentioned above. Meds/Allergies Home Medications and Allergies Home Medications Medication Instructions Recorded Confirmed Last Taken Type amitriptyline 25 mg PO BEDTIME PRN 08/31/19 08/31/19 Unknown History cyclobenzaprine 10 mg PO TID PRN 08/31/19 08/31/19 Unknown History hydrocodone-acetaminophen 15 ml PO Q5H PRN 08/31/19 08/31/19 08/29/19 History tramadol [Ultram] 100 mg PO QID PRN 08/31/19 08/31/19 Unknown History Allergies Allergy/AdvReac Type Severity Reaction Status Date / Time fluticasone [From Flonase] Allergy Unknown Verified 08/31/19 14:44 prednisone Allergy Unknown Verified 08/31/19 14:44 Current Medications Current Medications Generic Name Dose Route Start Last Admin Trade Name Freq PRN Reason Stop Dose Admin Albuterol/Ipratropium 3 ml 08/31/19 21:00 09/02/19 14:19 Duoneb INHALATION Not Given Q6H.RESPIRATORY BREA Carbamazepine 300 mg 09/01/19 11:15 09/02/19 14:11 Tegretol PO 300 mg TID BREA Administration Enoxaparin Sodium 40 mg 08/31/19 19:30 09/01/19 21:00 Lovenox SUBCUT 40 mg Q24H BREA Administration Gabapentin 200 mg 09/02/19 14:00 09/02/19 14:12 Neurontin PO 200 mg 0600,1400,2200 BREA Administration Hydromorphone HCl 0.5 mg 08/31/19 18:54 09/02/19 08:07 Dilaudid Inj IVP 0.5 mg Q4H PRN Administration BREAKTHROUGH PAIN Sodium Chloride 1,000 mls @ 50 mls/hr 08/31/19 16:00 09/02/19 17:37 Sodium Chloride 0.9% IV 50 mls/hr .Q20H BREA Infusion PFSH Acute PFSH: Medical History Glossopharyngeal neuralgia Recurrent syncope Sinus node dysfunction Vaso vagal episode Surgical History H/O hernia repair Vitals/I&O/Wt Last Vital Signs Temp 98.3 F 09/02/19 16:02 Pulse 63 09/02/19 16:00 Resp 26 H 09/02/19 16:00 BP 148/79 09/02/19 16:00 Pulse Ox 96 09/02/19 16:00 09/02/19 09/02/19 09/02/19 06:59 14:59 22:59 Intake Total 1000 / 2532 550 / 550 1891.667 / 2441.667 Output Total 350 / 350 400 / 750 Balance 1000 / 1532 200 / 200 1491.667 / 1691.667 Weight last 48 hrs Weight 198 lb Weight 198 lb Weight 198 lb Physical Exam Narrative: EXAM NARRATIVE: GENERAL: The patient is alert and oriented times three. Not in any acute distress. HEENT: No significant pallor, icterus or lymphadenopathy.Oral cavity: There are no mucous membrane lesions. NECK: Trachea appears to be central. No masses noted. No JVD or thyromegaly appreciated. RESPIRATORY: Chest is symmetrical. No intercostals muscle retraction or any accessory muscle activation. There is no chest wall tenderness. Breath sounds are heard bilaterally. No rales or rhonchi heard. No evidence of any consolidation. BREASTS: Deferred. HEART: The heart sounds are normal. No S3 or S4. No significant murmurs. No pericardial rub ABDOMEN: No vessel pulsations or distention. No tenderness. No organomegaly appreciated. Bowel sounds are normally heard. : Deferred. RECTAL: Deferred. LYMPHATIC: No lymphadenopathy noted in the neck or groin. EXTREMITIES: No edema or cyanosis. No clubbing. Peripheral pulses are palpated in fairly good volume and amplitude MUSCULOSKELETAL: No acute joint deformities or swelling SKIN: There are no significant rashes or ecchymosis NEUROPSYCHIATRIC: The patient is alert and oriented x3. Appears to be in a good mood. No tremors or rigidity noted. Data Labs: Other Labs: Laboratory Last Values WBC 6.5 10^3/uL (4.0- 10.0) 09/01/19 04:40 RBC 4.39 10^6/uL (4.1 -5.3) 09/01/19 04:40 Hgb 12.9 g/dL (11.7-1 6.6) 09/01/19 04:40 Hct 41.1 % (42.0-52.0 ) L 09/01/19 04:40 MCV 93.6 fL (80-94) 09/01/19 04:40 MCH 29.4 pg (28.0-34. 0) 09/01/19 04:40 MCHC 31.4 g/dL (30.0-3 6.0) 09/01/19 04:40 RDW 13.0 % (12.1-15.1 ) 09/01/19 04:40 Plt Count 153 10^3/cmm (130 -400) 09/01/19 04:40 MPV 10.6 fL (7.4-10.4 ) H 09/01/19 04:40 Neut % (Auto) 50.8 % 09/01/19 04:40 Lymph % (Auto) 41.6 % 09/01/19 04:40 [place] % (Auto) 5.7 % 09/01/19 04:40 Eos % (Auto) 0.8 % 09/01/19 04:40 Baso % (Auto) 0.9 % 09/01/19 04:40 Neut # (Auto) 3.28 10^3/uL (1.8 -7.7) 09/01/19 04:40 Lymph # (Auto) 2.7 10^3/uL (0.8- 4.8) 09/01/19 04:40 [place] # (Auto) 0.4 10^3/uL (0.2- 0.9) 09/01/19 04:40 Eos # (Auto) 0.1 10^3/uL (0.0- 0.8) 09/01/19 04:40 Baso # (Auto) 0.1 10^3/uL (0.0- 0.1) 09/01/19 04:40 Nucleated RBC % (a uto) 0 % 09/01/19 04:40 Nucleated RBCs # 0.0 /100WBC 09/01/19 04:40 ESR 5 mm/hr (0-10) 09/01/19 10:30 PT 13.50 SECONDS (10 .5-13.3) H 08/31/19 14:08 INR 1.00 (0.8-1.2) 08/31/19 14:08 Sodium 142 mmol/L (136-1 45) 09/01/19 04:40 Potassium 3.7 mmol/L (3.5-5 .1) 09/01/19 04:40 Chloride 111 mmol/L (98-10 7) H 09/01/19 04:40 Carbon Dioxide 23 mmol/L (22-29) 09/01/19 04:40 Anion Gap 11.7 (5-19) 09/01/19 04:40 BUN 9 mg/dL (8-23) 09/01/19 04:40 Creatinine 0.9 mg/dL (0.7-1. 2) 09/01/19 04:40 GFR Calculation 83.4 mL/min (90-1 30) L 09/01/19 04:40 Glucose 82 mg/dL (65-115) 09/01/19 04:40 Estimat Average Gl ucose 100 09/01/19 04:40 Hemoglobin A1c 5.1 % (4.0-6.0) 09/01/19 04:40 Calculated Osmolal ity 289 mOsm/kg (285- 295) 09/01/19 04:40 Lactate 1.8 mmol/L (0.5-2 .2) 08/31/19 14:08 Calcium 8.4 mg/dL (8.5-10 .5) L 09/01/19 04:40 Magnesium 1.9 mg/dL (1.7-2. 3) 08/31/19 14:08 Iron 65 ug/dL (59-158) 08/31/19 14:08 TIBC 202 mcg/dl 08/31/19 14:08 % Saturation 32.1 % (20-50) 08/31/19 14:08 Unsat Iron Binding 137 ug/dL (112-34 7) 08/31/19 14:08 Total Bilirubin 0.5 mg/dL (0.15-1 .2) 09/01/19 04:40 AST 12 U/L (0-40) 09/01/19 04:40 ALT 12 U/L (0-41) 09/01/19 04:40 Alkaline Phosphata se 48 IU/L (40-130) 09/01/19 04:40 Troponin T Baselin e 14 ng/L (0-15) 08/31/19 14:08 Troponin T 120 Min nikolai 11.20 ng/L (0-15) 08/31/19 16:12 Delta Troponin T -2.80 ABS# (0-10) L 08/31/19 16:12 Troponin T Hi Sens 6Hr 18.80 ng/L (0-15) H 08/31/19 20:06 Troponin T Hi Sens 6Hr Delta 4.80 ng/L (0-12) 08/31/19 20:06 NT-Pro-B Natriuret Pep 990 pg/mL (0-125) H 08/31/19 14:08 Total Protein 5.7 g/dL (6.6-8.7 ) L 09/01/19 04:40 Albumin 3.4 g/dL (3.5-5.2 ) L 09/01/19 04:40 Globulin 2.3 g/dL (1.3-4.6 ) 09/01/19 04:40 Triglycerides 59 mg/dL (0-150) 09/01/19 04:40 Cholesterol 115 mg/dL (0-200) 09/01/19 04:40 LDL Cholesterol, C alc 69 mg/dL (50-129) 09/01/19 04:40 Total VLDL Cholest jaya 12 mg/dL (0-30) 09/01/19 04:40 HDL Cholesterol 34 mg/dL (60-100) L 09/01/19 04:40 Cholesterol/HDL Ra norberto 3.38 mg/dL (1.0-5 .00) 09/01/19 04:40 Lipase 18 U/L (13-60) 08/31/19 14:08 TSH 1.32 uIU/mL (0.27 -4.20) 08/31/19 14:08 Prolactin 16.07 ng/mL (4.0- 15.2) H 08/31/19 14:08 Urine Color Yellow (Yellow) 08/31/19 22:15 Urine Appearance Clear (CLEAR) 08/31/19 22:15 Urine pH 5 (5-7) 08/31/19 22:15 Ur Specific Gravit y 1.025 (1.005-1.0 30) 08/31/19 22:15 Urine Protein Neg (Negative) 08/31/19 22:15 Urine Glucose (UA) Norm (Normal) 08/31/19 22:15 Urine Ketones 2+ (Negative) H 08/31/19 22:15 Urine Blood Neg (Negative) 08/31/19 22:15 Urine Nitrate Negative (Negati ve) 08/31/19 22:15 Urine Bilirubin Neg (NEGATIVE) 08/31/19 22:15 Urine Urobilinogen 1 mg/dL (Negative ) H 08/31/19 22:15 Ur Leukocyte Lizeth ase Negative (Negati ve) 08/31/19 22:15 Urine RBC None /hpf (0-2) 08/31/19 22:15 Urine WBC None /hpf (0-5) 08/31/19 22:15 Ur Squamous Epith Cells None (0-5) 08/31/19 22:15 Urine Bacteria Trace (NONE) 08/31/19 22:15 Hyaline Casts 0-4 H 08/31/19 22:15 Urine Opiates Scre en Negative ng/mL (N egative) 08/31/19 22:15 Ur Barbiturates Sc reen Positive ng/mL (N egative) H 08/31/19 22:15 Ur Phencyclidine S crn Negative ng/mL (N egative) 08/31/19 22:15 Ur Amphetamines Sc reen Negative ng/mL (N egative) 08/31/19 22:15 U Benzodiazepines Scrn Negative ng/mL (N egative) 08/31/19 22:15 Urine Cocaine Scre en Negative ng/mL (N egative) 08/31/19 22:15 U Marijuana (THC) Screen Negative ng/mL (N egative) 08/31/19 22:15 A&P Assessment and plan (1) Recurrent syncope: Patient's episodes of syncope, most likely related to prolonged sinus pauses. Most likely it is precipitated with the glossopharyngeal neuralgia. Status: Acute (2) Sinus node dysfunction: Patient may have an underlying sinus node dysfunction causing extreme sinus pauses and episodes of atrial fibrillation with rapid ventricular rate. He also has been having episodes of sinus bradycardia with a heart rate in the 30s and 50s In view of the patient's episodes of recurrent syncope and extreme tachy- bradycardia arrhythmias, it may be appropriate to go ahead with a permanent pacemaker plantation, for further management of his condition. This case was discussed with the neurology, who also agreed with this plan. I discussed with the patient detail about the procedure, risk, benefits and alternatives. Patient is wanting to go ahead with the pacemaker implantation. The risk of bleeding, hematoma, vascular injury, pneumothorax, infection, renal failure and other concomitant complications were explained in detail. The patient patient understood this well and consented to proceed. We will go ahead and plan for the pacemaker implantation sometime tomorrow Status: Acute Coding Level of Care Code Acute Staff Anesthetist for Tonie Machado Diagnoses Recurrent syncope R55 Sinus node dysfunction I49.5
--- NOTE | 2019-09-02 18:20 | PM.PN ---
Subjective Subjective: Interval history: Patient has episodes of bradycardia while awake heart rate stays into 30s to 40s. At other time it stays into high 50s. Vitals/I&O/Wt Last Vital Signs Temp 98.3 F 09/02/19 16:02 Pulse 63 09/02/19 16:00 Resp 26 H 09/02/19 16:00 BP 148/79 09/02/19 16:00 Pulse Ox 96 09/02/19 16:00 09/02/19 09/02/19 09/02/19 06:59 14:59 22:59 Intake Total 1000 / 2532 550 / 550 1891.667 / 2441.667 Output Total 350 / 350 400 / 750 Balance 1000 / 1532 200 / 200 1491.667 / 1691.667 Weight last 48 hrs Weight 198 lb Weight 198 lb Weight 198 lb Physical Exam Narrative: EXAM NARRATIVE: GENERAL: Patient is alert, awake and oriented x3. NECK: No jugular vein distension. HEENT: No cyanosis. No icterus. No pallor. HEART: Regular S1 and S2. No murmur, rub or gallop. LUNGS: Clear to auscultate bilaterally. ABDOMEN: Soft, nontender and nondistended. Positive bowel sounds. No guarding, rebound or tenderness. CENTRAL NERVOUS SYSTEM: Grossly nonfocal. EXTREMITIES: Lower extremities without edema bilaterally. Data : 09/01/19 04:40 09/01/19 04:40 A&P Assessment and plan (1) Afib: Currently in sinus rhythm. Patient had transient A. fib. Continue to monitor Status: Acute Qualifiers: Atrial fibrillation type: paroxysmal Qualified Code(s): I48.0 - Paroxysmal atrial fibrillation (2) Syncope: Patient has significant bradycardia and periods of asystole leading to major syncope. It is exaggerated vagal response due to glossopharyngeal neuralgia. I have detailed discussion with Dr. Linda Vera who thinks that patient will not recover from vagal exaggerated response syncope as there is no permanent cure for glossopharyngeal neuralgia. I have detailed discussion with the patient as in the face of A. fib requiring quyen zain and secondary to high vagal stimulation due to pain leading to significant more than 10 to 15 seconds sinoatrial arrest pause leading to syncope he may will be needing permanent pacemaker for therapeutic purpose. Patient otherwise is very active and lifestyle. I have detailed discussion with him as well and he would like to proceed with it. I will consult Dr. Cha who will further advise us. Status: Acute Qualifiers: Syncope type: unspecified Qualified Code(s): R55 - Syncope and collapse Attestations Medical Necessity Statement*: Patient require continuation hospitalization for above defined care. Coding Level of Care Code Established Pt Acute Communications Executive for g Fwd Patient Type Established History Expanded Problem Focused Exam Expanded Problem Focused Medical Decision Making Moderate Complexity Diagnoses Afib I48.0 Atrial fibrillation type: paroxysmal Syncope R55 Syncope type: unspecified
--- NOTE | 2019-09-02 21:32 | PC.NURSE ---
patient request all night medications be given at 2200
[2019-09-02] MEDS: enoxaparin 40 mg/0.4 mL Syringe SUBCUT (21:52)
--- NOTE | 2019-09-02 23:24 | PC.NURSE ---
patient resting well no complaints of pain or discomfort
[2019-09-03] VITALS (25 sets, daily range): BP systolic 116–174; BP diastolic 55–127; PULSE 48–75; RESP 8–32; TEMP 36.3; O2SAT 90–98
--- NOTE | 2019-09-03 02:18 | PC.NURSE ---
patient continues to rest well with no s/s of pain
[2019-09-03] MEDS: gabapentin 100 mg Capsule 200 MG PO ×3 (06:00→21:09)
--- NOTE | 2019-09-03 08:36 | DCPLANNER ---
Pg 2 of IM updated and reviewed with pt. He wants us to know that [facility]. [employer] tells him; regardless, since he does have a medicare card; he has that opportunity. He appreciates the explanation. He signs and was provided a copy, one to the chart.
[2019-09-03] MEDS: ipratropium-albuterol 3 mL Neb INHALATION (09:01)
[2019-09-03] MEDS: carBAMazepine 200 mg Tablet 300 MG PO ×3 (09:44→21:09)
--- NOTE | 2019-09-03 10:52 | PM.PN ---
Subjective Subjective: Interval history: No acute events overnight. Patient has remained comfortable. He states his pain is well controlled. Patient is n.p.o. today morning for pacemaker insertion later in the day. Vitals/I&O/Wt Last Vital Signs Temp 97.4 F L 09/03/19 10:00 Pulse 68 09/03/19 10:00 Resp 16 09/03/19 10:00 BP 157/127 09/03/19 10:00 Pulse Ox 92 09/03/19 10:00 09/02/19 09/03/19 09/03/19 22:59 06:59 14:59 Intake Total 2131.667 / 2921.667 Output Total 875 / 1675 325 / 2000 Balance 1256.667 / 1246.667 -325 / 921.667 Weight last 48 hrs Weight 91.172 kg Weight 89.811 kg Physical Exam Narrative: EXAM NARRATIVE: General: No acute distress, AO x3 HEENT: PERRLA, pupils bilaterally equal and reactive Chest: Normal vesicular breath sounds, no added sounds, equal good air entry bilaterally CVS: S1-S2 irregularly irregular, tachycardia, no gallops, no rubs Abdomen: Soft, nontender, no organomegaly, bowel sounds present Neuro: No focal deficits, no facial deformity, AO x3, power 5/5 in all limbs Data : 09/03/19 11:24 09/03/19 11:24 A&P Assessment and plan (1) Cardiac syncope: Status: Acute (2) Cardiac asystole: Status: Acute (3) Afib: Status: Acute Qualifiers: Atrial fibrillation type: paroxysmal Qualified Code(s): I48.0 - Paroxysmal atrial fibrillation (4) Glossopharyngeal neuralgia: Status: Acute Additional A&P Information Syncope: Most likely cardiac. Patient did have asystole while in the ambulance and also in the ER with history of vasovagal hypersensitivity. Patient would most likely have continuous glossopharyngeal neuralgia as per our discussion with Dr. Vera. Given high probability of patient having cardiac asystole again it was decided to give patient an option for possible pacemaker insertion. Patient has agreed upon the same. Patient is going for pacemaker insertion later in the day today. Case discussed with Dr. Rivas. Recommendations appreciated. A. fib: At present bradycardic. For now we will hold off on any antiarrhythmics or node blocking agent because of bradycardia. We will continue to monitor on telemetry. Code cart at bedside. Patient most likely require anticoagulation because of persistent atrial fibrillation. For now we will hold off on anticoagulation in case patient requires PPI placement. Can discharge patient on Eliquis. Glossopharyngeal neuralgia: Chronic problem. Pain better controlled. Continue with carbamazepine 300 mg 3 times daily and gabapentin 200 mg 3 times daily. Case discussed with Dr. Vera. Patient has an appointment to see Dr. Vera on September 24. Potassium repleted. Full code. N.p.o. Cardiac diet postprocedure Lovenox for DVT prophylaxis. Attestations Medical Necessity Statement*: Cardiac asystole, atrial fibrillation, glossopharyngeal neuralgia. Patient needs further admission for pacemaker insertion today. Time Spent in Patient Care: Greater than 35 minutes (>than 50% of time spent in counselling and/or direct pt care on unit). Coding Level of Care Code Acute Ladle Filler for [facility] Domenicad Diagnoses Cardiac syncope R55 Cardiac asystole I46.9 Afib I48.0 Atrial fibrillation type: paroxysmal Glossopharyngeal neuralgia G52.1
--- NOTE | 2019-09-03 11:38 | PM.PN ---
Subjective Subjective: Interval history: Remain stable with usual bradycardic events. He will be getting pacemaker today. Dr. Cha consultation appreciated Vitals/I&O/Wt Last Vital Signs Temp 97.4 F L 09/03/19 10:00 Pulse 68 09/03/19 10:00 Resp 16 09/03/19 10:00 BP 157/127 09/03/19 10:00 Pulse Ox 92 09/03/19 10:00 09/02/19 09/03/19 09/03/19 22:59 06:59 14:59 Intake Total 2131.667 / 2921.667 Output Total 875 / 1675 325 / 2000 Balance 1256.667 / 1246.667 -325 / 921.667 Weight last 48 hrs Weight 201 lb Weight 198 lb Physical Exam Narrative: EXAM NARRATIVE: GENERAL: Patient is alert, awake and oriented x3. NECK: No jugular vein distension. HEENT: No cyanosis. No icterus. No pallor. HEART: Regular S1 and S2. No murmur, rub or gallop. LUNGS: Clear to auscultate bilaterally. ABDOMEN: Soft, nontender and nondistended. Positive bowel sounds. No guarding, rebound or tenderness. CENTRAL NERVOUS SYSTEM: Grossly nonfocal. EXTREMITIES: Lower extremities without edema bilaterally. Data : 09/01/19 04:40 09/01/19 04:40 A&P Assessment and plan (1) Recurrent syncope: Related to sinus pauses due to sinus node dysfunction and vagally mediated episodes Status: Acute (2) Sinus node dysfunction: Patient will be going for permanent pacemaker placement for significant sinus bradycardia/tachybradycardia syndrome and A. fib difficult to treat along with significant syncope secondary to sinus arrest. We will go ahead and plan for the pacemaker implantation sometime tomorrow Status: Acute (3) Afib: Currently in sinus rhythm. Continue to monitor. Once pacemaker was in place may use low-dose beta-zain. Currently patient had only one episode of at A. fib lasted not more than couple of hours therefore anticoagulation at the moment is not indicated. Full dose aspirin advised Status: Acute Qualifiers: Atrial fibrillation type: paroxysmal Qualified Code(s): I48.0 - Paroxysmal atrial fibrillation Attestations Medical Necessity Statement*: Patient require continuation hospitalization for above defined treatment. Coding Level of Care Code Established Pt Acute Generation Engineering Technologist for Chg Fwd Patient Type Established History Expanded Problem Focused Exam Expanded Problem Focused Medical Decision Making Moderate Complexity Diagnoses Recurrent syncope R55 Sinus node dysfunction I49.5 Afib I48.0 Atrial fibrillation type: paroxysmal
[2019-09-03 11:52] LABS: Basophils # 0.1 10^3/uL (0.0-0.1); Basophils % 0.9 %; Eosinophils # 0.1 10^3/uL (0.0-0.8); Eosinophils % 1.4 %; Hematocrit 45.6 % (42.0-52.0); Hemoglobin 14.5 g/dL (11.7-16.6); Lymphocytes # 1.5 10^3/uL (0.8-4.8); Lymphocytes % 25.9 %; Mean Corpuscular HGB Conc 31.8 g/dL (30.0-36.0); Mean Corpuscular Hemoglobin 29.5 pg (28.0-34.0); Mean Corpuscular Volume 92.9 fL (80-94); Mean Platelet Volume 10.3 fL (7.4-10.4); Monocytes # 0.4 10^3/uL (0.2-0.9); Monocytes % 7.7 %; Neutrophils # 3.67 10^3/uL (1.8-7.7); Neutrophils % 63.8 %; Nucleated Red Blood Cells % 0 %; Platelet Count 155 10^3/cmm (130-400); Red Blood Count 4.91 10^6/uL (4.1-5.3); Red Cell Distribution Width 13.1 % (12.1-15.1); White Blood Count 5.8 10^3/uL (4.0-10.0)
[2019-09-03 12:10] LABS: Alanine Aminotransferase 12 U/L (0-41); Albumin Level 3.5 g/dL (3.5-5.2); Alkaline Phosphatase 61 IU/L (40-130); Anion Gap 12.2 (5-19); Aspartate Amino Transferase 13 U/L (0-40); Blood Urea Nitrogen 6 mg/dL (8-23); Calcium 8.2 mg/dL (8.5-10.5); Carbon Dioxide 24 mmol/L (22-29); Chloride 105 mmol/L (98-107); Globulin 2.4 g/dL (1.3-4.6); Glomerular Filtration Rate 83.4 mL/min (90-130); Glucose 86 mg/dL (65-115); Osmolality Calculated 281 mOsm/kg (285-295); Potassium 3.2 mmol/L (3.5-5.1); Sodium 138 mmol/L (136-145); Total Bilirubin 0.6 mg/dL (0.15-1.2); Total Protein 5.9 g/dL (6.6-8.7)
--- NOTE | 2019-09-03 12:14 | W.PM.OPSUD ---
Surgery/Procedure H&P Update DATE OF PROCEDURE: September 03, 2019 DATE H&P PERFORMED: 09/02/19 H&P UPDATE INFORMATION: I have reviewed H&P completed within last 30 days, I have examined patient prior to procedure and No changes to prior documentation PLANNED PROCEDURE: Operation Date: 09/03/19 12:15 Proposed Procedures p Pacemaker Insertion(Left) - Ian Cha MD PHYSICAL EXAM: alert, oriented x 3 and regular rate & rhythm AIRWAY EVAL/ANESTHESIA PLAN: normal airway, see other exam findings, ASA II, Risks, benefits & alternatives of sedation and/or procedure discussed and Patient agrees to continue as planned
--- NOTE | 2019-09-03 14:00 | P.OP_ITS ---
Operative Report Date of procedure: September 03, 2019 Pre-op Diagnosis: Syncope/sinus node dysfunction Procedure: LOCATION: Cardiac catheterization lab PREOPERATIVE DIAGNOSES: Syncope/sinus quyen dysfunction. POSTOPERATIVE DIAGNOSES: Same. COMPLICATIONS: None. ESTIMATED BLOOD LOSS: Around 5 milliliters. BRIEF HISTORY: This is a 69-year-old white male, present with recurrent episode of syncope. He was found to have prolonged pauses of up to 12 seconds, on the telemetry associated with the syncope/near syncope. He also was found to have paroxysmal atrial fibrillation with rapid ventricular rate and sinus bradycardia. For further management of his condition, a permanent pacer implantation was requested. For the AV synchrony and symptom relief, a dual- chamber pacemaker implantation was recommended. The procedure was explained to the patient in detail with the risks and benefits. The risks of bleeding, hematoma, vascular injury, infection, pneumothorax, myocardial perforation and other concomitant complications were explained in detail, which the patient understood well and consented to proceed. PROCEDURE DESCRIPTION: The patient was brought to the Cardiac Catheterization Lab. The left and the right side of the neck and the subclavian area were cleaned and draped in a sterile fashion. 1% Xylocaine was used as the local anesthetic agent. A left subclavian venous access was obtained using a micropuncture needle system. Under venographic guidance, the patient was injected with 20 milliliters of Omnipaque through the left antecubital vein. A two-inch long incision was made 2.0 centimeters below the midclavicular region. By sharp and blunt dissection, a pacemaker pocket was made. A second venous access was obtained using another micropuncture needle system. Over the first guidewire, a 7-[place] venous sheath with dilator was advanced. The venous dilator and the guidewire were taken out. A screw-in ventricular lead was advanced through the venous sheath and was positioned towards the right ventricle. Under fluoroscopy guidance, the ventricular lead was positioned toward the right ventricular apex. Good pacing and sensing thresholds were obtained. The lead was secured to the endocardium by advancing the helix. The stability of the lead was tested by gentle twisting movements and also by asking the patient to take some deep breaths and cough. The venous sheath was peeled off, at this time. The lead was secured to the pectoralis fascia, by suturing with 1-0 Surgilon. Over the second guidewire, another 7-[place] venous sheath with dilator was advanced. The dilator and the guidewire were taken out. Under fluoroscopy guidance, an atrial lead (Medtronic), was advanced and positioned toward the right atrium. The lead was positioned in the right atrial appendage. Good pacing and sensing thresholds were obtained. The lead was secured to the endocardium by advancing the helix. Stability of the lead was tested by gentle twisting movements and also by asking the patient to take some deep breaths and cough. The venous sheath was peeled off, at this time. The lead was secured to the pectoralis fascia by suturing with 0-Surgilon. The pacemaker pocket was copiously irrigated with vancomycin solution. Complete hemostasis was achieved. Sponge counts were confirmed. The leads were attached to a Medtronic generator. The leads were positioned behind the generator and the generator was attached to the pectoralis fascia by suturing with 0-Surgilon. The pocket was closed in layers. Skin was approximated using 4-0 Vicryl. IMPLANTED DEVICES: ATRIAL LEAD: Model number: 50 76/52 Serial number: [id number] Make: Medtronic VENTRICULAR LEAD: Model number: 50 76/58 Serial number: [id number] Make: Medtronic GENERATOR Brand: [place] Three XT DR MRI Sofia Model number: [id number] Serial number: [id number] Make: Medtronic IMPLANTATION DATA: With the pacing system analyzer, the R wave sensing was 8.8 millivolts with a lead impedance of 871 and a pacing threshold was 0.6 volts at 0.4 milliseconds. In the atrium, the sensing was 3.2 millivolts with a lead impedance of 598 ohms and a pacing threshold was 0.8 volts at 0.4 milliseconds. The pacemaker was set for MVPR mode with upper rate of 120 and a lower rate of 60 syncope/sinus node dysfunction. A pressure dressing was applied over the pacemaker site. The patient was transferred to the Medical Floor in stable condition. A chest x-ray was ordered to confirm the lead position and also to rule out any pneumothorax.
[2019-09-03] MEDS: sodium chloride 0.9% 1,000 ML 75 ML IV (15:18)
[2019-09-03] MEDS: HYDROmorphone 1 mg/mL INJ 1 mL 0.5 MG IVP ×2 (18:50→21:09)
[2019-09-04] VITALS (11 sets, daily range): BP systolic 120–166; BP diastolic 59–94; PULSE 60–76; RESP 13–29; TEMP 36.8–37.1; O2SAT 92–98
[2019-09-04] MEDS: HYDROmorphone 1 mg/mL INJ 1 mL 0.5 MG IVP (00:07)
[2019-09-04] MEDS: HYDROmorphone 1 mg/mL INJ 1 mL IVP ×2 (02:22→05:56)
--- NOTE | 2019-09-04 02:41 | PC.NURSE ---
Report rcd from ZEINA Toribio. Nurse emphasized that tegretol and gabapentin MUST be given at the same time. Upon pt assessment, pt reiterated that he would need those two medications given at the same time. Pt stated that he was in pain 8/10 even after 0.[address] Rodriguez consulted and order changed. Pt woke up in pain at 0200. more dilaudid was not available for another hour. Dr. Rodriguez consulted again and order changed again.
[2019-09-04] MEDS: sodium chloride 0.9% 1,000 ML 50 ML IV (04:31)
[2019-09-04 05:23] LABS: Basophils % 0.5 %; Eosinophils # 0.2 10^3/uL (0.0-0.8); Eosinophils % 2.6 %; Hematocrit 39.8 % (42.0-52.0); Hemoglobin 13.1 g/dL (11.7-16.6); Lymphocytes # 2.2 10^3/uL (0.8-4.8); Lymphocytes % 34.4 %; Mean Corpuscular HGB Conc 32.9 g/dL (30.0-36.0); Mean Corpuscular Hemoglobin 30.3 pg (28.0-34.0); Mean Corpuscular Volume 92.1 fL (80-94); Mean Platelet Volume 10.4 fL (7.4-10.4); Monocytes # 0.5 10^3/uL (0.2-0.9); Monocytes % 7.2 %; Neutrophils # 3.53 10^3/uL (1.8-7.7); Nucleated Red Blood Cells % 0 %; Platelet Count 148 10^3/cmm (130-400); Red Blood Count 4.32 10^6/uL (4.1-5.3); White Blood Count 6.4 10^3/uL (4.0-10.0)
[2019-09-04 05:59] LABS: Alanine Aminotransferase 9 U/L (0-41); Alkaline Phosphatase 51 IU/L (40-130); Anion Gap 10.4 (5-19); Aspartate Amino Transferase 11 U/L (0-40); Blood Urea Nitrogen 9 mg/dL (8-23); Calcium 7.8 mg/dL (8.5-10.5); Carbon Dioxide 25 mmol/L (22-29); Chloride 107 mmol/L (98-107); Globulin 2.4 g/dL (1.3-4.6); Glomerular Filtration Rate 95.6 mL/min (90-130); Glucose 98 mg/dL (65-115); Osmolality Calculated 284 mOsm/kg (285-295); Potassium 3.4 mmol/L (3.5-5.1); Sodium 139 mmol/L (136-145); Total Bilirubin 0.4 mg/dL (0.15-1.2); Total Protein 5.4 g/dL (6.6-8.7)
--- NOTE | 2019-09-04 06:00 | XRR_ITS ---
PROCEDURE INFORMATION: Exam: XR Chest, 1 View Exam date and time: 09/04/2019 6:41 AM Age: 69 years old Clinical indication: Device placement; Cardiac pacemaker lead placement or adjustment; Patient HX: Visualize lead tip; Additional info: Post permanent pacemaker placement; Visualize lead tip TECHNIQUE: Imaging protocol: XR of the chest Views: 1 view. COMPARISON: CR XR chest 1V portable [id number] 08/31/2019 2:33 PM FINDINGS: Lungs: Mild opacity right retrocardiac region. Subpulmonic effusion-moderate. Mild adjacent atelectasis. Opacity right apex likely osseous. Pleural space: See Lungs finding. Heart/Mediastinum: The cardiac silhouette appears enlarged, some of which is magnification related to the AP projection. Vasculature: Pacemaker is present via a left subclavian approach. Bones/joints: Unremarkable. XR/XR chest 1V [id number] IMPRESSION: Mild opacity right retrocardiac region. Subpulmonic effusion-moderate. Mild adjacent atelectasis. Pacemaker placement. No pneumothorax. Atrial and ventricular leads.
--- NOTE | 2019-09-04 06:00 | ECG_ITS ---
[facility] Test Date: 2019-09-04 Pat Name: Mohan Monzon Department: Room: ICU04 Gender: Male [place] Hand: : 1950 Requested By: Ian Cha Order Number: [id number] Gala MD: Ian Cha M.D. Measurements Intervals Ajo Rate: 60 P: 216 MS: 172 QRS: 38 QRSD: 99 T: 29 QT: 420 QTc: 420 Interpretive Statements ELECTRONIC ATRIAL PACEMAKER NONSPECIFIC T-WAVE ABNORMALITY ABNORMAL RHYTHM ECG WARNING: DATA QUALITY MAY AFFECT INTERPRETATION Compared to ECG 09/01/2019 00:11:24 Sinus bradycardia no longer present Sinus arrhythmia no longer present T-wave abnormality still present Electronically Signed On 09-04-2019 23:46:56 CDT by Ian Cha M.D. [email or web address]
[2019-09-04] MEDS: gabapentin 100 mg Capsule 200 MG PO ×2 (06:21→13:54)
[2019-09-04] MEDS: carBAMazepine 200 mg Tablet 300 MG PO ×2 (06:21→13:54)
[2019-09-04] MEDS: ibuprofen 600 mg Tablet PO (07:46)
--- NOTE | 2019-09-04 10:37 | P.DS_ITS ---
Discharge Providers Date of Admission: 08/31/19 15:17 Date of Discharge: September 04, 2019 Attending Provider at Admission: Ulises Valle MD Attending Provider at Discharge: Ulises Valle MD Consults: Cardiology: Dr. Rivas/Dr. 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 Patient states he was at his baseline health till today morning when while he was sitting in his chair trying to wear his shoes when he thinks he had passed out because he had dropped the glass from his hand and did not realize. After that patient went to bathroom and laid on the bed to rest. As per the patient his saw him having jittery movements while in the bed which he does not remember. At that time they called the EMS for patient to be brought to the ER. While being transported to the ER patient had an episode of 10-second asystole while in the ambulance which is also associated with jittery movements. Patient did not require any chest compressions or medications and came back in normal sinus rhythm. While in the ER patient went into atrial fibrillation with rapid ventricular response of heart rate going into 130s fluctuating down to 50s. Most of the episodes of bradycardia were preceded by sharp pain in his jaw. He denies of having any nausea, vomiting, dizziness, palpitation, diaphoresis, exertional dyspnea, exertional angina. While in the ER patient also had an episode of asystole which lasted for around 10 to 12 seconds and came back to normal sinus rhythm with heart rate of 50s. Patient did not require any medication but was unresponsive during that episode as well. During examination patient denies of having any nausea, vomiting, headache, shortness of breath, flulike symptoms, recent fevers, recent exposure to COVID- 19. He was admitted to the ICU for further monitoring. Patient continued to have recurrent episodes of bradycardia whenever he would have tongue pain even at rest. Case was discussed with neurologist Dr. Vera who stated that most likely patient's glossopharyngeal neuralgia will continue and he might continue having bouts of pain even with the medications. It is most likely that patient has hypersensitivity of the vagal nerve causing him to have bradycardia and asystole. Glossopharyngeal neuralgia patient underwent CT neck soft tissue and MRI brain to rule out a mass. He was started on carbamazepine for neuralgia which he tolerated well. For cardiac asystole patient was seen by cardiology and patient underwent pacemaker implantation on September 02 which was uneventful. Post pacemaker chest x- ray was negative for any pneumothorax. Pacemaker was checked prior to discharge as well. During hospitalization patient was found to have paroxysmal A. fib. Patient is supposed to be on Eliquis 5 mg twice daily from tomorrow for anticoagulation because his Dipesh Vasc score is 1 for age. Patient is been discharged hemodynamically stable condition with advised to follow-up with cardiology nurse for Dr. Cha in 1 week for pacemaker check, Dr. Vera on September 24 on already set appointment and his primary care provider at [place] within 1 month. Patient has been provided with medications as meds to bed. Physical Exam Narrative: EXAM NARRATIVE: General: No acute distress, AO x3 HEENT: PERRLA, pupils bilaterally equal and reactive Chest: Normal vesicular breath sounds, no added sounds, equal good air entry bilaterally CVS: S1-S2 irregularly irregular, tachycardia, no gallops, no rubs Abdomen: Soft, nontender, no organomegaly, bowel sounds present Neuro: No focal deficits, no facial deformity, AO x3, power 5/5 in all limbs Discharge Data Data Completed and Pending: Completed Studies During Hospitalization Category Date Time Status CT neck wo con 70 490 Routine Cat Scan 09/01/19 09:42 Completed [facility] request for service Routin e Exams 09/03/19 11:41 Completed XR chest 1V [id number] Routine Exams 09/04/19 06:00 Completed XR chest 1V emely ble [id number] Stat Exams 08/31/19 13:59 Completed MR head wo con* 7 [id number] Routine MRI 09/02/19 10:15 Completed CV echo limited 9 [id number] Routine Ultrasound 08/31/19 15:57 Completed Labs from last 24 hours 09/04/19 09/04/19 09/03/19 04:42 04:42 11:24 WBC 6.4 5.8 RBC 4.32 4.91 Hgb 13.1 14.5 Hct 39.8 L 45.6 MCV 92.1 92.9 MCH 30.3 29.5 MCHC 32.9 31.8 RDW 13.0 13.1 Plt Count 148 155 MPV 10.4 10.3 Neut % (Auto) 55.0 63.8 Lymph % (Auto) 34.4 25.9 Blair % (Auto) 7.2 7.7 Eos % (Auto) 2.6 1.4 Baso % (Auto) 0.5 0.9 Neut # (Auto) 3.53 3.67 Lymph # (Auto) 2.2 1.5 Blair # (Auto) 0.5 0.4 Eos # (Auto) 0.2 0.1 Baso # (Auto) 0.0 0.1 Nucleated RBC % (a uto) 0 0 Nucleated RBCs # 0.0 0.0 Sodium 139 Potassium 3.4 L Chloride 107 Carbon Dioxide 25 Anion Gap 10.4 BUN 9 Creatinine 0.8 GFR Calculation 95.6 Glucose 98 Calculated Osmolal ity 284 L Calcium 7.8 L Total Bilirubin 0.4 AST 11 ALT 9 Alkaline Phosphata se 51 Total Protein 5.4 L Albumin 3.0 L Globulin 2.4 09/03/19 11:24 WBC RBC Hgb Hct MCV MCH MCHC RDW Plt Count MPV Neut % (Auto) Lymph % (Auto) Blair % (Auto) Eos % (Auto) Baso % (Auto) Neut # (Auto) Lymph # (Auto) Blair # (Auto) Eos # (Auto) Baso # (Auto) Nucleated RBC % (a uto) Nucleated RBCs # Sodium 138 Potassium 3.2 L Chloride 105 Carbon Dioxide 24 Anion Gap 12.2 BUN 6 L Creatinine 0.9 GFR Calculation 83.4 L Glucose 86 Calculated Osmolal ity 281 L Calcium 8.2 L Total Bilirubin 0.6 AST 13 ALT 12 Alkaline Phosphata se 61 Total Protein 5.9 L Albumin 3.5 Globulin 2.4 Vitals: Last Vital Signs Temp 98.2 F 09/04/19 08:00 Pulse 66 09/04/19 08:00 Resp 29 H 09/04/19 08:00 BP 127/74 09/04/19 08:00 Pulse Ox 97 09/04/19 08:00 Discharge Plan Discharge Patient Disposition: Home, Self-Care Condition: Stable Prescriptions: New gabapentin 100 mg Capsule 200 mg PO 0600,1400,2200 Qty: 90 RF: 0 carbamazepine 200 mg Tablet 300 mg PO 0600,1400,2200 Qty: 90 RF: 0 cephalexin [Keflex] 500 mg capsule 500 mg PO Q6H 7 Days Qty: 28 RF: 0 Eliquis 5 mg tablet 5 mg PO BID Qty: 60 RF: 0 Continued cyclobenzaprine 10 mg Tablet 10 mg PO TID PRN (Reason: Muscle Spasm) RF: 0 tramadol [Ultram] 50 mg Tablet 100 mg PO QID PRN (Reason: Pain) RF: 0 amitriptyline 25 mg Tablet 25 mg PO BEDTIME PRN (Reason: unknown) RF: 0 hydrocodone-acetaminophen 7.5-325 mg/15 mL Solution 15 ml PO Q5H PRN (Reason: Pain) RF: 0 Discharge Orders: Discharge Order (Routine); Ordered 09/04/19 Ordered By: Ulises Valle Referrals: Linda Vera MD [Physician] - 09/25/19 Andrei Sagastume [Primary Care Provider] - 7-10 days Ian Cha MD [Physician] - 7-10 days (Pacemaker check) Tab Rivas MD [Physician] - 1 month Discharge Diet: Cardiac Discharge Activity: Resume usual activity and Increase activity as tolerated Activity Restrictions/Additional Instructions: Please take Keflex which is the antibiotic 4 times a day for next 7 days. Please follow-up with Dr. Cha nurse next 2 weeks and 7 days for pacemaker check. For glossopharyngeal neuralgia you are on 2 different nerve medications now. He can take both of them 3 times a day. Please follow-up with Dr. Vera onset appointment September 24. You are on a blood thinner called his Eliquis 5 mg which is supposed to take 2 times a day. You can start that medication from tomorrow morning. Discharge Attestations Time Spent in Discharge Care*: greater than 30 min Specific Discharge Activities: Specific discharge activities: educating patient, discussing with pcp/other providers, discussing with caseworker/social workers/dc planners, documenting/other paperwork and evaluating patient/reviewing data Status at Discharge: Cognitive status at discharge: cognitively intact , Behavioral status at discharge: cooperative , Functional status at discharge: independent ambulation Overall status at discharge: patient is back to baseline Quality Metrics Clinical Quality Measures During this hospital stay, did patient experience: None Coding Level of Care Code Acute Jewel [employer] for Tonie Fwd Diagnoses Cardiac syncope R55 Cardiac asystole I46.9 Afib I48.0 Atrial fibrillation type: paroxysmal Glossopharyngeal neuralgia G52.1 Pacemaker Z95.0
== END 2019-09-04 16:25 | disposition home or self-care (01) | DRG 242 ==
LOC: ER 15:18 → ICU 16:45
PROVIDERS: Emergency Medicine; Internal Medicine Cardiovascular Disease; Admitting Provider Student in an Organized Health Care Education/Training Program; PCP Internal Medicine; Visit Provider Student in an Organized Health Care Education/Training Program
PROC: 0JH606Z Insertion of Pacemaker, Dual Chamber into Chest Subcutaneous Tissue and Fascia, Open Approach (ICD-10-PCS; principal; 2019-09-03 12:15)
DX: R00.1 Bradycardia, unspecified (principal); I46.9 Cardiac arrest, cause unspecified; I48.0 Paroxysmal atrial fibrillation; G52.1 Disorders of glossopharyngeal nerve; R55 Syncope and collapse
CPT/HCPCS: 12345; 33208; 36415; 70490; 70551; 71045; 80053; 80061; 80306; 81001; 83036; 83540; 83550; 83605; 83690; 83735; 83880; 84146; 84443; 84484; 85025; 85610; 85651; 93005; 93308; 94640; 94664; 96372; 96375; 97110; 97165; 99284; C1769; C1779; C1786; C1894; C1898; J0690; J1165; J1170; J1650; J2250; J2405; J3010; J7030; J7040; J7050; Q2009; Q9967

== ENCOUNTER → 2019-09-25 08:12 | Outpatient (BNVA) | payer OTHER, MEDICARE, SELFPAY | PROVIDERS: PCP Internal Medicine; Referring Provider Student in an Organized Health Care Education/Training Program; Visit Provider Specialist | DX: G52.1 Disorders of glossopharyngeal nerve (principal); R55 Syncope and collapse; R29.90 Unspecified symptoms and signs involving the nervous system | CPT/HCPCS: 99204 ==

== ENCOUNTER 2019-09-29 13:51 | Outpatient (CLI) | payer OTHER, SELFPAY ==
--- NOTE | 2019-09-29 14:15 | USCV_ITS ---
Mohan Monzon Age: 69 Gender: M : 1950 Exam Date: 09/29/2019 14:04 Ordering Phys: Alicia Amezquita Technologist: Karen Garay Exam Location: [facility] [place] Indication: EDEMA OF LOWER EXT BP: / HR: 74 Rhythm: Sinus Technical Quality: MEASUREMENTS (Male / Female) Normal Values 2D ECHO LV Diastolic Diameter PLAX 4.1 cm 4.2 - 5.9 / 3.9 - 5.3 cm LV Systolic Diameter PLAX 3.0 cm LV Chamber Size 2.9 cm IVS Diastolic Thickness 1.5 cm 0.6 - 1.0 / 0.6 - 0.9 cm IVS Systolic Thickness 1.9 cm LVPW Diastolic Thickness 2.2 cm 0.6 - 1.0 / 0.6 - 0.9 cm LVPW Systolic Thickness 2.5 cm RV Chamber Size 2.4 cm LVOT Diameter 2.1 cm LV Ejection Fraction 2D Teich 50.1 % LV Ejection Fraction MOD 2C 43.4 % LV Ejection Fraction 2C AL 45.3 % LA Diameter 5.1 cm LA Width 3.8 cm LA Height 3.2 cm RA Width 2.8 cm RA Height 3.1 cm M-MODE LV Diastolic Diameter MM 7.2 cm 4.2 - 5.9 / 3.9 - 5.3 cm LV Systolic Diameter MM 4.6 cm LV Ejection Fraction MM Teich 63.7 % IVS Diastolic Thickness MM 1.3 cm 0.6 - 1.0 / 0.6 - 0.9 cm IVS Systolic Thickness MM 1.9 cm LVPW Diastolic Thickness MM 1.4 cm 0.6 - 1.0 / 0.6 - 0.9 cm LVPW Systolic Thickness MM 1.4 cm Aortic Annulus Diameter 2.7 cm LA Ao Ratio MM 1.9 MV E Point Septal Separation 1.0 cm DOPPLER AV Peak Velocity 160.0 cm/s LVOT Peak Velocity 110.0 cm/s AV Area Cont Eq vti 3.0 cm squared AV Area Cont Eq pk 2.3 cm squared MV Area PHT 4.2 cm squared Mitral E to A Ratio 1.3 MV E' Velocity 10.0 cm/s Mitral E to MV E' Ratio 7.8 Mitral E to LV E' Lateral Ratio 7.8 Mitral E to LV E' Septal Ratio 7.8 TR Peak Velocity 306.0 cm/s TR Peak Gradient 37.5 mmHg TV Peak E Velocity 59.0 cm/s Right Atrial Pressure 3.0 mmHg Pulmonary Artery Systolic Pressu 40.5 mmHg PV Peak Velocity 67.0 cm/s RV Acceleration Time 0.2 s RV Ejection Time 0.3 s RV AcT/ET 0.5 FINDINGS Left Ventricle Normal left ventricular size and systolic function, EF 55 %. No regional wall motion abnormalities. Right Ventricle The right ventricle is normal in size and function. Right Atrium The right atrium is normal in size. Left Atrium The left atrium is normal in size. Mitral Valve Thickened mitral valve. Mild mitral valve regurgitation. Aortic Valve No gross abnormalities noted Tricuspid Valve Trace tricuspid valve regurgitation. Pulmonic Valve No gross abnormalities noted. Pericardium Normal pericardium without effusion. Aorta Normal ascending aorta dimension. CONCLUSIONS Normal left ventricular size and systolic function, EF 55 %. No regional wall motion abnormalities. Thickened mitral valve. Mild mitral valve regurgitation. Trace tricuspid valve regurgitation. Mild pulmonary hypertension with an estimated pulmonary artery peak systolic pressure of 41 mmHg There is no pericardial effusion. There are no intracardiac masses. Comparison with the previous study is difficult because of the difference in the technical quality. Dr Ian Cha MD [facility] (Electronically Signed) Final Date: 30 September 2019 17:22 S
== END 2019-09-29 13:52 | disposition home or self-care (01) ==
PROVIDERS: PCP Internal Medicine; Visit Provider Nurse Practitioner Family
DX: R60.0 Localized edema (principal); I27.20 Pulmonary hypertension, unspecified; I08.1 Rheumatic disorders of both mitral and tricuspid valves
CPT/HCPCS: 93306

== ENCOUNTER → 2020-01-20 11:08 | Outpatient (BNVA) | payer OTHER, SELFPAY | PROVIDERS: PCP Family Medicine; Visit Provider Specialist | DX: G52.1 Disorders of glossopharyngeal nerve (principal); R55 Syncope and collapse; Z95.0 Presence of cardiac pacemaker; Z87.891 Personal history of nicotine dependence | CPT/HCPCS: 99214 ==

== ENCOUNTER → 2020-03-28 13:05 | Outpatient (BNVA) | payer OTHER, SELFPAY | PROVIDERS: PCP Family Medicine; Visit Provider Specialist | DX: L27.0 Generalized skin eruption due to drugs and medicaments taken internally (principal); T42.1X5A Adverse effect of iminostilbenes, initial encounter; G52.1 Disorders of glossopharyngeal nerve; R55 Syncope and collapse; Z87.891 Personal history of nicotine dependence | CPT/HCPCS: 99214 ==

== ENCOUNTER → 2020-05-09 08:35 | Outpatient (BNVA) | payer OTHER, SELFPAY | PROVIDERS: PCP Family Medicine; Visit Provider Specialist | DX: L27.0 Generalized skin eruption due to drugs and medicaments taken internally (principal); T42.1X5A Adverse effect of iminostilbenes, initial encounter; G52.1 Disorders of glossopharyngeal nerve; Z87.891 Personal history of nicotine dependence | CPT/HCPCS: 99214 ==

== ENCOUNTER → 2020-06-10 09:55 | Outpatient (BNVA) | payer OTHER, SELFPAY | PROVIDERS: PCP Family Medicine; Visit Provider Specialist | DX: G52.1 Disorders of glossopharyngeal nerve (principal); Z87.891 Personal history of nicotine dependence | CPT/HCPCS: 99214 ==

== ENCOUNTER → 2020-06-13 09:01 | Outpatient (BNVA) | payer OTHER, SELFPAY | PROVIDERS: PCP Family Medicine; Visit Provider Specialist | DX: G52.1 Disorders of glossopharyngeal nerve (principal); Z87.891 Personal history of nicotine dependence | CPT/HCPCS: 99214 ==

== ENCOUNTER → 2020-07-20 11:12 | Outpatient (BNVA) | payer OTHER, SELFPAY | PROVIDERS: PCP Family Medicine; Visit Provider Specialist | DX: G52.1 Disorders of glossopharyngeal nerve (principal); Z87.891 Personal history of nicotine dependence | CPT/HCPCS: 99213 ==

== ENCOUNTER → 2021-01-24 10:39 | Outpatient (BNVA) | payer OTHER, SELFPAY | PROVIDERS: PCP Family Medicine; Visit Provider Specialist | DX: G52.1 Disorders of glossopharyngeal nerve (principal) | CPT/HCPCS: 99213 ==

== ENCOUNTER → 2021-04-19 13:57 | Outpatient (BNVA) | payer OTHER, SELFPAY | PROVIDERS: PCP Family Medicine; Visit Provider Internal Medicine Cardiovascular Disease | DX: M79.606 Pain in leg, unspecified (principal); R03.0 Elevated blood-pressure reading, without diagnosis of hypertension; I48.0 Paroxysmal atrial fibrillation; R06.02 Shortness of breath; M79.89 Other specified soft tissue disorders; I50.33 Acute on chronic diastolic (congestive) heart failure | CPT/HCPCS: 99214 ==

== ENCOUNTER → 2021-10-12 09:53 | Outpatient (BNVA) | payer OTHER, SELFPAY | PROVIDERS: PCP Family Medicine; Visit Provider Internal Medicine Cardiovascular Disease | DX: G52.1 Disorders of glossopharyngeal nerve (principal); Z95.0 Presence of cardiac pacemaker; R03.0 Elevated blood-pressure reading, without diagnosis of hypertension | CPT/HCPCS: 99213; 99214 ==

== ENCOUNTER → 2021-11-03 10:19 | Outpatient (BNVA) | payer OTHER, SELFPAY | PROVIDERS: PCP Family Medicine; Visit Provider Internal Medicine Cardiovascular Disease | DX: Z45.010 Encounter for checking and testing of cardiac pacemaker pulse generator [battery] (principal) | CPT/HCPCS: 93280 ==

== ENCOUNTER → 2022-01-24 10:45 | Outpatient (BNVA) | payer OTHER, SELFPAY | PROVIDERS: PCP Family Medicine; Visit Provider Specialist | DX: G52.1 Disorders of glossopharyngeal nerve (principal) | CPT/HCPCS: 99213 ==

== ENCOUNTER 2022-02-15 10:59 | Emergency (ER) | payer OTHER, SELFPAY ==
[2022-02-15 11:00] VITALS: BP 148/82; PULSE 70; RESP 18; TEMP 36.2; O2SAT 98; BMI 26.6
--- NOTE | 2022-02-15 11:22 | US_ITS ---
WS: [id number] ULTRASOUND ABDOMEN LIMITED CLINICAL INFORMATION: ruq pain COMPARISON: None. FINDINGS: Liver Size: Normal. Craniocaudal length: 14.3 cm. Echogenicity: Normal. Surface nodularity: None. Mass (size and location): None. Bile ducts Intrahepatic ducts: Normal. Common bile duct diameter: 0.4 cm. Gallbladder Fluid distended gallbladder with cholelithiasis. No gallbladder wall thickening or pericholecystic fl uid. Gallstones: Present Gallbladder sludge: None. Gallbladder wall thickening: None. Pericholecystic fluid: None. Sonographic Estrada sign: Absent. Pancreas Not well visualized Right kidney: RIGHT upper pole renal cyst measuring 9 x 10 x 8 mm Hydronephrosis: None. Size: 11.4 cm x 6.6 cm x 5.3 cm. Abdominal aorta and IVC Visualized portions are normal. Ascites: None. US/US gall bladder [id number] IMPRESSION: Technically difficult study due to bowel gas. 1. Distended gallbladder with cholelithiasis. Negative Estrada's sign. No gallb ladder wall thickening or pericholecystic fluid. 2. Normal common bile duct. 3. Normal liver. 4. No hydronephrosis in RIGHT kidney.
--- NOTE | 2022-02-15 11:28 | ED_ITS ---
HPI - Abdominal Pain General: Chief Complaint: Abdominal Pain Stated Complaint: abdominal pain Time Seen by Provider: 02/15/22 11:07 History of Present Illness: Patient comes in with abdominal pain. States it started yesterday afternoon, is right upper quadrant, sharp, constant. Ass ociated with nausea. Denies fever, vomiting, or diarrhea. States he has a known history of gallbladder disease and has met with the surgeon. I made the decision to hold off and see if he was going to have any other problems. States he has been taking apple cider vinegar every day since the diagnosis and has not had a problem. States that recently he stopped taking the apple cider vinegar and thinks that might be the cause. States the pain is gone at this time after receiving fentanyl in the ambulance. Associated Symptoms: Denies dysuria, fever(s), nausea and vomiting Review of Systems Const: Denies: fever(s) or body aches Eyes: Denies: change in vision or blurry vision ENMT: Denies: throat pain or odynophagia Card: Denies: chest pain or palpitations Resp: Denies: dyspnea or productive cough GI: Reports: abdominal pain; Denies: nausea or vomiting : Denies: flank pain or dysuria Musc: Denies: neck pain or back pain Skin/Breast: Denies: rash or pruritus Neuro: Denies: headache(s) or numbness in extremities Psych: Denies: anxiety or change in appetite Endo: Denies: polyuria or excessive sweating PFSH ED PFSH: Medical History Elevated blood pressure reading Glossopharyngeal neuralgia Recurrent syncope Sinus node dysfunction Vaso vagal episode Surgical History H/O hernia repair History of permanent cardiac pacemaker placement Family History Grandfather Hypertension Father Hypertension Denies family history of Diabetes CAD (coronary artery disease) Clotting disorder Dementia Hyperlipidemia Psychiatric illness Chronic kidney disease (CKD) Suicide Anesthesia complication Bleeding disorder Family history of premature coronary artery disease Lung disease Cancer Stroke Social History Smoking and tobacco status: former smoker Alcohol intake: never History of recent travel: No Physical Exam Const: COMMON NORMALS: no acute distress, patient oriented x3, healthy appearing and alert HENMT: COMMON NORMALS: normocephalic and atraumatic HEAD & SCALP: normocephalic and atraumatic Eye: COMMON NORMALS: Equal, round and reactive pupils present and EOMs intact bilaterally PUPIL: Yes Equal, round and reactive pupils present Neck/C-Spine: COMMON NORMALS: full ROM and supple Resp: COMMON NORMALS: normal respiratory effort, No retractions and No use of accessory muscles Cardio: COMMON NORMALS: regular rate and regular rhythm RATE: regular rate RHYTHM: regular rhythm GI: COMMON NORMALS: Normal to inspection, nondistended, normoactive bowel sounds present, Soft to palpation and non-tender PALPATION: Yes Soft to palpation Back/Pelvis: COMMON NORMALS: thoracic and lumbar spine normal to inspection and no thoracic nor lumbar tenderness Extremity: COMMON NORMALS: normal to inspection and full ROM Neuro: COMMON NORMALS: patient oriented x3 SENSORIUM/ORIENTATION: Yes alert Psych: COMMON NORMALS: mental status grossly normal and cooperative Skin: COMMON NORMALS: no rashes or lesions noted and no wounds GENERAL SKIN EXAM: no rashes or lesions noted Course Vital Signs: Vital signs: Vital Signs Temperature 97.2 F L 02/15/22 11:00 Pulse Rate 70 02/15/22 11:00 Respiratory Rate 18 02/15/22 11:00 Blood Pressure 148/82 02/15/22 11:00 Pulse Oximetry 98 02/15/22 11:00 Oxygen Delivery Me thod 02/15/22 11:00 MDM - Abdominal Pain Medical Decision Making Patient comes in with abdominal pain. States it started yesterday afternoon, is right upper quadrant, sharp, constant. Associated with nausea. Denies fever, vomiting, or diarrhea. States he has a known history of gallbladder disease and has met with the surgeon. I made the decision to hold off and see if he was going to have any other problems. States he has been taking apple cider vinegar every day since the diagnosis and has not had a problem. States that recently he stopped taking the apple cider vinegar and thinks that might be the cause. States the pain is gone at this time after receiving fentanyl in the ambulance. Physical exam is unremarkable. Will check labs, ultrasound, and reassess. On reassessment I talked to the patient about the test results. He continues to be asymptomatic. Will refer him to surgery, and discharged with precautions to return for worsening or changing symptoms. I did give him a liter of normal saline here for his sodium. I also encouraged him to drink plenty of noncaffeinated fluids, and to have it rechecked this next week. Lab Data 02/15/22 11:10 02/15/22 11:10 Labs/Radiology: Radiology Impressions Gallbladder Ultrasound 02/15/22 11:22 IMPRESSION: Technically difficult study due to bowel gas. 1. Distended gallbladder with cholelithiasis. Negative Estrada's sign. No gallbladder wall thickening or pericholecystic fluid. 2. Normal common bile duct. 3. Normal liver. 4. No hydronephrosis in RIGHT kidney. Laboratory Results WBC 8.6 10^3/uL (4.0-10.0) 02/15/22 11:10 RBC 5.38 10^6/uL (4.1-5.3) H 02/15/22 11:10 Hgb 16.6 g/dL (11.7-16.6) 02/15/22 11:10 Hct 48.2 % (42.0-52.0) 02/15/22 11:10 MCV 89.6 fl (80-94) 02/15/22 11:10 MCH 30.9 pg (28.0-34.0) 02/15/22 11:10 MCHC 34.4 g/dL (30.0-36.0) 02/15/22 11:10 RDW 12.3 % (12.1-15.1) 02/15/22 11:10 Plt Count 205 10^3/cmm (130-400) 02/15/22 11:10 MPV 9.1 fL (7.4-10.4) 02/15/22 11:10 Neut % (Auto) 74.3 % 02/15/22 11:10 Lymph % (Auto) 18.7 % 02/15/22 11:10 Wright % (Auto) 6.0 % 02/15/22 11:10 Eos % (Auto) 0.2 % 02/15/22 11:10 Baso % (Auto) 0.4 % 02/15/22 11:10 Neut # (Auto) 6.38 10^3/uL (1.8-7.7) 02/15/22 11:10 Lymph # (Auto) 1.6 10^3/uL (0.8-4.8) 02/15/22 11:10 Wright # (Auto) 0.5 10^3/uL (0.2-0.9) 02/15/22 11:10 Eos # (Auto) 0.0 10^3/uL (0.0-0.8) 02/15/22 11:10 Baso # (Auto) 0.0 10^3/uL (0.0-0.1) 02/15/22 11:10 Nucleated RBC % (auto) 0 % 02/15/22 11:10 Nucleated RBCs # 0.0 /100WBC 02/15/22 11:10 Sodium 126 mmol/L (136-145) L 02/15/22 11:10 Potassium 4.1 mmol/L (3.5-5.1) 02/15/22 11:10 Chloride 93 mmol/L (98-107) L 02/15/22 11:10 Carbon Dioxide 24 mmol/L (22-29) 02/15/22 11:10 Anion Gap 13.1 (5-19) 02/15/22 11:10 BUN 7 mg/dL (8-23) L 02/15/22 11:10 Creatinine 0.6 mg/dL (0.7-1.2) L 02/15/22 11:10 GFR Calculation Not Reportable 02/15/22 11:10 Glucose 98 mg/dL (65-115) 02/15/22 11:10 Calculated Osmolality 260 mOsm/kg (285-295) L 02/15/22 11:10 Calcium 8.8 mg/dL (8.5-10.5) 02/15/22 11:10 Total Bilirubin 0.6 mg/dL (0.15-1.2) 02/15/22 11:10 AST 21 U/L (0-40) 02/15/22 11:10 ALT 20 U/L (0-41) 02/15/22 11:10 Alkaline Phosphatase 110 U/L (40-130) 02/15/22 11:10 Total Protein 7.3 g/dL (6.6-8.7) 02/15/22 11:10 Albumin 4.6 g/dL (3.5-5.2) 02/15/22 11:10 Globulin 2.7 g/dL (1.3-4.6) 02/15/22 11:10 Lipase 23 U/L (13-60) 02/15/22 11:10 Discharge Plan Discharge Patient Disposition: Home Clinical Impression: Gall bladder stones Condition: Stable Prescriptions: No Action tramadol 50 mg tablet 50 mg PO Q8H PRN potassium chloride 10 mEq capsule, extended release 10 meq PO BID Qty: 60 3RF gabapentin 400 mg capsule 200 mg PO TID warfarin 5 mg tablet 5 mg PO DAILY Qty: 30 2RF carbamazepine [Tegretol] 200 mg tablet 300 mg PO TID Qty: 300 3RF Rx Instructions: Stop if rash occurs furosemide [Lasix] 40 mg tablet 40 mg PO DAILY PRN (Reason: edema) Qty: 90 3RF Discharge Orders: Discharge ED (Routine); Ordered 02/15/22 Ordered By: Manoj Henry Referrals: Manjeet Barbosa DO [Physician] - (Evaluation for symptomatic gall stones) Emelia Lew MD [Primary Care Provider] - Patient Instructions: Biliary Colic (ED), Gallstones (ED) Coding Level of Care Code ED Gas Leak Inspector Helper for Chg Fwd Exam Comprehensive
[2022-02-15 11:32] LABS: Basophils % 0.4 %; Eosinophils % 0.2 %; Hematocrit 48.2 % (42.0-52.0); Hemoglobin 16.6 g/dL (11.7-16.6); Lymphocytes # 1.6 10^3/uL (0.8-4.8); Lymphocytes % 18.7 %; Mean Corpuscular HGB Conc 34.4 g/dL (30.0-36.0); Mean Corpuscular Hemoglobin 30.9 pg (28.0-34.0); Mean Corpuscular Volume 89.6 fl (80-94); Mean Platelet Volume 9.1 fL (7.4-10.4); Monocytes # 0.5 10^3/uL (0.2-0.9); Neutrophils # 6.38 10^3/uL (1.8-7.7); Neutrophils % 74.3 %; Nucleated Red Blood Cells % 0 %; Platelet Count 205 10^3/cmm (130-400); Red Blood Count 5.38 10^6/uL (4.1-5.3); Red Cell Distribution Width 12.3 % (12.1-15.1); White Blood Count 8.6 10^3/uL (4.0-10.0)
[2022-02-15 11:43] LABS: Alanine Aminotransferase 20 U/L (0-41); Albumin Level 4.6 g/dL (3.5-5.2); Alkaline Phosphatase 110 U/L (40-130); Anion Gap 13.1 (5-19); Aspartate Amino Transferase 21 U/L (0-40); Blood Urea Nitrogen 7 mg/dL (8-23); Calcium 8.8 mg/dL (8.5-10.5); Carbon Dioxide 24 mmol/L (22-29); Chloride 93 mmol/L (98-107); Globulin 2.7 g/dL (1.3-4.6); Glucose 98 mg/dL (65-115); Lipase 23 U/L (13-60); Osmolality Calculated 260 mOsm/kg (285-295); Potassium 4.1 mmol/L (3.5-5.1); Sodium 126 mmol/L (136-145); Total Bilirubin 0.6 mg/dL (0.15-1.2); Total Protein 7.3 g/dL (6.6-8.7)
[2022-02-15] MEDS: sodium chloride 0.9% 1,000 ML 999 ML IV (12:39)
== END 2022-02-15 14:40 | disposition home or self-care (01) ==
PROVIDERS: Emergency Provider Emergency Medicine; PCP Family Medicine
DX: K80.20 Calculus of gallbladder without cholecystitis without obstruction (principal); Z79.01 Long term (current) use of anticoagulants; Z87.891 Personal history of nicotine dependence; Z95.0 Presence of cardiac pacemaker
CPT/HCPCS: 76705; 80053; 83690; 85025; 99284; J7030

== ENCOUNTER → 2022-11-19 14:45 | Outpatient (BNVA) | payer OTHER, SELFPAY | PROVIDERS: PCP Family Medicine; Visit Provider Internal Medicine Cardiovascular Disease | DX: Z95.0 Presence of cardiac pacemaker (principal); R03.0 Elevated blood-pressure reading, without diagnosis of hypertension; I48.0 Paroxysmal atrial fibrillation; Z79.01 Long term (current) use of anticoagulants; Z87.891 Personal history of nicotine dependence | CPT/HCPCS: 99214 ==

== ENCOUNTER → 2023-01-22 10:41 | Outpatient (BNVA) | payer OTHER, SELFPAY | PROVIDERS: PCP Family Medicine; Visit Provider Specialist | DX: G52.1 Disorders of glossopharyngeal nerve (principal) | CPT/HCPCS: 99213 ==

== ENCOUNTER → 2023-02-04 11:00 | Outpatient (BNVA) | payer OTHER, SELFPAY | PROVIDERS: PCP Family Medicine; Visit Provider Internal Medicine Cardiovascular Disease | DX: Z45.010 Encounter for checking and testing of cardiac pacemaker pulse generator [battery] (principal) | CPT/HCPCS: 93296 ==

== ENCOUNTER → 2023-08-01 10:17 | Outpatient (BNVA) | payer OTHER, SELFPAY | PROVIDERS: PCP Family Medicine | DX: Z45.010 Encounter for checking and testing of cardiac pacemaker pulse generator [battery] (principal) | CPT/HCPCS: 93296 ==

== ENCOUNTER → 2023-11-18 13:52 | Outpatient (BNVA) | payer OTHER, SELFPAY | PROVIDERS: PCP Family Medicine; Visit Provider Internal Medicine Cardiovascular Disease | DX: I48.0 Paroxysmal atrial fibrillation (principal); Z95.0 Presence of cardiac pacemaker; R03.0 Elevated blood-pressure reading, without diagnosis of hypertension; M79.89 Other specified soft tissue disorders; Z87.891 Personal history of nicotine dependence | CPT/HCPCS: 99214 ==

== ENCOUNTER → 2024-01-22 11:25 | Outpatient (BNVA) | payer OTHER, SELFPAY | PROVIDERS: PCP Family Medicine; Visit Provider Specialist | DX: R29.90 Unspecified symptoms and signs involving the nervous system (principal); G52.1 Disorders of glossopharyngeal nerve | CPT/HCPCS: 99213; 99214 ==

== ENCOUNTER → 2024-01-29 10:10 | Outpatient (BNVA) | payer OTHER, SELFPAY | PROVIDERS: PCP Family Medicine; Visit Provider Internal Medicine Cardiovascular Disease | DX: Z45.02 Encounter for adjustment and management of automatic implantable cardiac defibrillator (principal) | CPT/HCPCS: 93296 ==

== ENCOUNTER → 2024-04-29 09:41 | Outpatient (BNVA) | payer OTHER, SELFPAY | PROVIDERS: PCP Family Medicine; Visit Provider Internal Medicine | DX: Z45.018 Encounter for adjustment and management of other part of cardiac pacemaker (principal) | CPT/HCPCS: 93296 ==

== ENCOUNTER 2024-05-14 09:59 | Emergency (ER) | payer OTHER, SELFPAY ==
[2024-05-14 10:00] VITALS: BP 146/86; PULSE 73; RESP 16; TEMP 37; O2SAT 99; BMI 26.0
--- NOTE | 2024-05-14 10:07 | CT_ITS ---
WS: [id number] CT CERVICAL TRAUMA TECHNIQUE: Noncontrast CT of the cervical spine with coronal and sagittal reformatted images. CLINICAL INFORMATION: fall COMPARISON: None. DLP: 1512.[address] scans at [facility] use at least one of these dose optimization techniques: automated exposure control; mA and/or kV adjustment per patient size (includes targeted exams where dose is matched to clinical indication); or iterative reconstruction. FINDINGS: Mild cervical curve. Moderate spondylitic changes. Slight anterolisthesis C4 on C5. Disc narrowing with disc osteophyte complexes at C5-C6 and C6-C7. Normal craniocervical junction. Normal C1-C2 articulation. Dens is normal in appearance. Normal occipital condyles. No high-grade spinal canal narrowing. Normal C1 ring. No evidence of acute fracture or dislocation. Normal prevertebral soft tissues. Mastoids air cells are well aerated. CT/CT cervical spin wo con* [id number] IMPRESSION: No evidence of acute fracture or dislocation.
--- NOTE | 2024-05-14 10:07 | CT_ITS ---
WS: [id number] CT HEAD TECHNIQUE: Noncontrast CT of the head obtained from the skullbase to the vertex. CLINICAL INFORMATION: fall COMPARISON: None. DLP: 1512.[address] scans at [facility] use at least one of these dose optimization techniques: automated exposure control; mA and/or kV adjustment per patient size (includes targeted exams where dose is matched to clinical indication); or iterative reconstruction. FINDINGS: No evidence of intracranial hemorrhage or mass effect. Ventricular system and basal cisterns are patent. Mild small vessel changes with mild parenchymal volume loss. No extra-axial fluid collections. No evidence of mass or mass effect. Normal pete-white differentiation. Paranasal sinuses and mastoid air cells are well aerated. .Normal visualized soft tissues. CT/CT head wo con* [id number] IMPRESSION: 1. No evidence of intracranial hemorrhage or mass effect. 2. No acute intracranial findings.
--- NOTE | 2024-05-14 10:07 | ECG_ITS ---
[facility] Test Date: 2024-05-14 Pat Name: Mohan Monzon Department: Room: Gender: Male Rooms Director: : 1950 Requested By: Maryan Aly Order Number: [id number] Cedeño MD: Ian Cha M.D. Measurements Intervals [place] Rate: 60 P: -74 WA: 215 QRS: 32 QRSD: 103 T: 77 QT: 420 QTc: 420 Interpretive Statements ELECTRONIC ATRIAL PACEMAKER LOW QRS VOLTAGE IN EXTREMITY LEADS [QRS DEFLECTION < 0.5 mV IN LIMB LEADS] NONSPECIFIC T-WAVE ABNORMALITY ABNORMAL RHYTHM ECG Compared to ECG 09/04/2019 05:19:50 Low QRS voltage now present T-wave abnormality still present Electronically Signed On 05-14-2024 22:20:37 CDT by Ian Cha M.D. [email or web address]
--- NOTE | 2024-05-14 10:11 | W.ED.FALL ---
HPI - Fall General: Chief Complaint: Fall Stated Complaint: fall - head injury Time Seen by Provider: 05/14/24 10:00 Source: patient and EMS Mode of arrival: EMS Limitations: no limitations History of Present Illness: 74-year-old male states that he had had 2 falls today had some slight lightheadedness states he had a history of falls. He did hit his head has an abrasion to his head patient is on Coumadin he has some head neck pain denies any chest pain denies any hip pain denies any shortness of breath. Patient also complains of some lower back pain Associated symptoms-after fall: Reports headache(s) and lightheadedness; Denies abdominal pain, chest pain or neck pain Related Data Home Medications ?Medication ?Instructions ?Recorded ?Confirmed tramadol 50 mg tablet 50 mg PO Q8H 01/24/21 05/14/24 warfarin 5 mg tablet See Rx Instructions .Route .COMPLEX 05/14/24 05/14/24 Previous Rx's ?Medication ?Instructions ?Recorded potassium chloride 10 mEq 10 meq PO BID #60 caps 10/19/20 capsule,extended release carbamazepine 200 mg tablet 300 mg (1.5 x 200 mg) PO TID #300 01/22/23 (Tegretol) tabs gabapentin 300 mg capsule 300 mg PO TID #300 caps 01/22/23 hydrocodone 5 mg-acetaminophen 325 1 tab PO Q6H PRN pain #14 tabs 05/14/24 mg tablet Allergies Allergy/AdvReac Type Severity Reaction Status Date / Time fluticasone (From Flonase) Allergy Unknown Verified 01/22/24 12:13 prednisone Allergy Unknown Verified 01/22/24 12:13 Review of Systems Const: Denies: fever(s), chills, body aches or change in appetite ENMT: Denies: throat pain or dental pain Card: Reports: lightheadedness; Denies: chest pain Resp: Denies: dyspnea GI: Denies: abdominal pain, nausea, vomiting or diarrhea Musc: Reports: back pain; Denies: neck pain Skin/Breast: Denies: rash Neuro: Reports: headache(s) PFS ED PFSH: Medical History Elevated blood pressure reading Sinus node dysfunction Recurrent syncope Vaso vagal episode Glossopharyngeal neuralgia Surgical History History of permanent cardiac pacemaker placement H/O hernia repair Family History Grandfather Hypertension Father Hypertension Denies family history of Diabetes CAD (coronary artery disease) Clotting disorder Dementia Hyperlipidemia Psychiatric illness Chronic kidney disease (CKD) Suicide Anesthesia complication Bleeding disorder Family history of premature coronary artery disease Lung disease Cancer Stroke Social History Smoking and tobacco/nicotine status: former use of tobacco/nicotine Alcohol intake: never Substance/Drug Use: never Physical Exam Const: COMMON NORMALS: no acute distress, patient oriented x3 and healthy appearing HENMT: COMMON NORMALS: normocephalic HEAD & SCALP: normocephalic OTHER: abrasion noted to posterior head Eye: COMMON NORMALS: Equal, round and reactive pupils present and EOMs intact bilaterally PUPIL: Yes Equal, round and reactive pupils present Neck/C-Spine: COMMON NORMALS: full ROM and supple Chest: COMMONS NORMALS: normal inspection of the chest and normal palpation of entire chest wall Resp: COMMON NORMALS: normal respiratory effort, No retractions, No use of accessory muscles and clear to auscultation bilaterally AUSCULTATION: clear to auscultation bilaterally Cardio: COMMON NORMALS: regular rate, regular rhythm and No murmurs present (Cardio) RATE: regular rate RHYTHM: regular rhythm GI: COMMON NORMALS: Normal to inspection, nondistended, normoactive bowel sounds present, Soft to palpation, non-tender and no masses PALPATION: Yes Soft to palpation Back/Pelvis: OTHER: Tenderness along lumbar thoracic spine no obvious deformity Extremity: COMMON NORMALS: normal to inspection and full ROM Neuro: COMMON NORMALS: patient oriented x3, moves all extremities and no focal motor deficits Psych: COMMON NORMALS: mental status grossly normal, Normal thought process present and cooperative THOUGHT PROCESS: Normal thought process present Skin: COMMON NORMALS: no rashes or lesions noted and no wounds GENERAL SKIN EXAM: no rashes or lesions noted Course Vital Signs: Vital signs: Vital Signs Temperature 98.6 F 05/14/24 10:00 Pulse Rate 70 05/14/24 11:56 Respiratory Rate 16 05/14/24 10:00 Blood Pressure 151/83 05/14/24 11:56 Pulse Oximetry 97 05/14/24 11:56 Oxygen Delivery Me thod Room Air 05/14/24 10:00 MDM - Fall Medical Decision Making Patient presents here after syncopal event and a fall he has been well-appearing here is able ambulate without difficulty does have a T12 compression fracture did speak to Dr. Katz will placement TLSO brace and get him follow-up return if worsening. Medical Records I reviewed the patient's medical records. Lab Data 05/14/24 10:05 05/14/24 10:05 Radiology Impressions Cervical Spine CT 05/14/24 10:07 IMPRESSION: No evidence of acute fracture or dislocation. Head CT 05/14/24 10:07 IMPRESSION: 1. No evidence of intracranial hemorrhage or mass effect. 2. No acute intracranial findings. Lumbar Spine CT 05/14/24 12:06 IMPRESSION: 1. Chronic spondylolysis L5-S1 with slight grade 1 anterolisthesis. 2. Moderate central canal stenosis L2-L3. Moderate L3-4 and moderate to severe L4-5 due to disc bulging with facet arthropathy and ligamentum flavum hypertrophy. Impingement of the subarticular recess at these levels. 3. Shallow central protrusion L5-S1 with slight impingement on the traversing S1 nerve roots. 4. LEFT foraminal protrusion L3-4 impinges the exiting LEFT L3 nerve root with moderate LEFT foraminal narrowing. Thoracic Spine CT 05/14/24 12:06 IMPRESSION: Mild acute compression fracture superior endplate T12. No retropulsion. Laboratory Results WBC 8.38 10^3/uL (3.29-11.43) 05/14/24 10:05 RBC 5.39 10^6/uL (3.85-5.65) 05/14/24 10:05 Hgb 16.90 g/dL (11.27-16.99) 05/14/24 10:05 Hct 50.0 % (37-53) 05/14/24 10:05 MCV 92.8 fl (82-101) 05/14/24 10:05 MCH 31.4 pg (27-33) 05/14/24 10:05 MCHC 33.8 g/dL (30-55) 05/14/24 10:05 RDW 12.8 % (12.1-15.1) 05/14/24 10:05 Plt Count 224 10^3/cmm (157-399) 05/14/24 10:05 MPV 9.0 fL (7.4-10.4) 05/14/24 10:05 Neut % (Auto) 72.4 % 05/14/24 10:05 Lymph % (Auto) 18.1 % 05/14/24 10:05 [place] % (Auto) 6.9 % 05/14/24 10:05 Eos % (Auto) 1.6 % 05/14/24 10:05 Baso % (Auto) 0.8 % 05/14/24 10:05 Neut # (Auto) 6.06 10^3/uL (1.8-7.7) 05/14/24 10:05 Lymph # (Auto) 1.5 10^3/uL (0.8-4.8) 05/14/24 10:05 [place] # (Auto) 0.6 10^3/uL (0.2-0.9) 05/14/24 10:05 Eos # (Auto) 0.1 10^3/uL (0.0-0.8) 05/14/24 10:05 Baso # (Auto) 0.1 10^3/uL (0.0-0.1) 05/14/24 10:05 Nucleated RBC % (auto) 0 % 05/14/24 10:05 Nucleated RBCs # 0.0 /100WBC 05/14/24 10:05 PT 30.20 SECONDS (12.1-14.9) H 05/14/24 10:05 INR 2.70 (0.8-1.2) H 05/14/24 10:05 Sodium 135 mmol/L (136-145) L 05/14/24 10:05 Potassium 3.9 mmol/L (3.5-5.1) 05/14/24 10:05 Chloride 99 mmol/L (98-107) 05/14/24 10:05 Carbon Dioxide 26 mmol/L (22-29) 05/14/24 10:05 Anion Gap 13.9 (5-19) 05/14/24 10:05 BUN 13 mg/dL (8-23) 05/14/24 10:05 Creatinine 0.9 mg/dL (0.7-1.2) 05/14/24 10:05 GFR Calculation Not Reportable 05/14/24 10:05 Glucose 108 mg/dL (65-115) 05/14/24 10:05 Calculated Osmolality 281 mOsm/kg (285-295) L 05/14/24 10:05 Calcium 8.9 mg/dL (8.5-10.5) 05/14/24 10:05 Total Bilirubin 0.6 mg/dL (0.15-1.2) 05/14/24 10:05 AST 20 U/L (0-40) 05/14/24 10:05 ALT 24 U/L (0-41) 05/14/24 10:05 Alkaline Phosphatase 129 U/L (40-130) 05/14/24 10:05 Total Protein 7.9 g/dL (6.6-8.7) 05/14/24 10:05 Albumin 4.6 g/dL (3.5-5.2) 05/14/24 10:05 Globulin 3.3 g/dL (1.3-4.6) 05/14/24 10:05 All radiology interpretation(s) finalized by discharge Discharge Plan Discharge Patient Disposition: Home Clinical Impression: Syncope, Compression fracture of thoracic vertebra Condition: Stable Prescriptions: New hydrocodone-acetaminophen 5-325 mg tablet 1 tab PO Q6H PRN (Reason: pain) Qty: 14 0RF No Action tramadol 50 mg tablet 50 mg PO Q8H potassium chloride 10 mEq capsule, extended release 10 meq PO BID Qty: 60 3RF gabapentin 300 mg capsule 300 mg PO TID Qty: 300 3RF carbamazepine [Tegretol] 200 mg tablet 300 mg PO TID Qty: 300 3RF Rx Instructions: Stop if rash occurs warfarin 5 mg tablet See Rx Instructions .ROUTE .COMPLEX Rx Instructions: Take 1 tablet by mouth daily ,on Wednesdays take a one and a half tablets . Discharge Orders: Discharge ED (Routine); Ordered 05/14/24 Ordered By: Maryan Aly Referrals: Dante Smith DO [Physician] - 4-7 days mEelia Lew MD [Primary Care Provider] - Discharge Diet: Advance as tolerated Discharge Activity: Resume usual activity Patient Instructions: Vertebral Compression Fracture (ED), Syncope (ED) Print Language: Nauruan Coding Level of Care Code ED Cupola Repairer for Chg Jeannette
[2024-05-14 10:21] LABS: Basophils # 0.1 10^3/uL (0.0-0.1); Basophils % 0.8 %; Eosinophils # 0.1 10^3/uL (0.0-0.8); Eosinophils % 1.6 %; Lymphocytes # 1.5 10^3/uL (0.8-4.8); Lymphocytes % 18.1 %; Mean Corpuscular HGB Conc 33.8 g/dL (30-55); Mean Corpuscular Hemoglobin 31.4 pg (27-33); Mean Corpuscular Volume 92.8 fl (82-101); Monocytes # 0.6 10^3/uL (0.2-0.9); Monocytes % 6.9 %; Neutrophils # 6.06 10^3/uL (1.8-7.7); Neutrophils % 72.4 %; Nucleated Red Blood Cells % 0 %; Platelet Count 224 10^3/cmm (157-399); Red Blood Count 5.39 10^6/uL (3.85-5.65); Red Cell Distribution Width 12.8 % (12.1-15.1); White Blood Count 8.38 10^3/uL (3.29-11.43)
[2024-05-14 10:41] LABS: Alanine Aminotransferase 24 U/L (0-41); Albumin Level 4.6 g/dL (3.5-5.2); Alkaline Phosphatase 129 U/L (40-130); Anion Gap 13.9 (5-19); Aspartate Amino Transferase 20 U/L (0-40); Blood Urea Nitrogen 13 mg/dL (8-23); Calcium 8.9 mg/dL (8.5-10.5); Carbon Dioxide 26 mmol/L (22-29); Chloride 99 mmol/L (98-107); Creatinine Clr Calc Pharmacy 86.4175; Globulin 3.3 g/dL (1.3-4.6); Glucose 108 mg/dL (65-115); Osmolality Calculated 281 mOsm/kg (285-295); Potassium 3.9 mmol/L (3.5-5.1); Sodium 135 mmol/L (136-145); Total Bilirubin 0.6 mg/dL (0.15-1.2); Total Protein 7.9 g/dL (6.6-8.7)
[2024-05-14 11:56] VITALS: BP 151/83; PULSE 70; O2SAT 97
--- NOTE | 2024-05-14 11:57 | PC.NURSE ---
PATIENT AMBULATED AROUND THE ROOM, SLOW WITH BACK PAIN.
--- NOTE | 2024-05-14 12:06 | CT_ITS ---
WS: [id number] CT LUMBAR SPINE TECHNIQUE: Noncontrast CT of the lumbar spine with coronal and sagittal reformatted images. CLINICAL INFORMATION: fall DLP: 1089.[address] scans at [facility] use at least one of these dose optimization techniques: automated exposure control; mA and/or kV adjustment per patient size (includes targeted exams where dose is matched to clinical indication); or iterative reconstruction. FINDINGS: Mild lumbar curve. Chronic spondylolysis L5-S1 with grade 1 anterolisthesis. No acute appearing compression fractures. L1-L2: Mild annular bulging. Mild RIGHT greater than LEFT foraminal narrowing. L2-L3: Mild annular bulging with mild central canal stenosis. Narrowing of the subarticular recess. Mild facet arthropathy. Mild LEFT greater than RIGHT foraminal narrowing. L3-L4: Moderate central canal stenosis with facet arthropathy and ligamentum flavum hypertrophy. LEFT foraminal protrusion with moderate LEFT foraminal narrowing impinges the exiting LEFT L3 nerve root. L4-L5: Moderate to severe central canal stenosis. Moderate facet arthropathy ligamentum flavum hypertrophy. Severe impingement subarticular recess. Mild to moderate RIGHT foraminal narrowing. L5-S1: Grade 1 anterolisthesis with chronic spondylolysis. Slight impingement on traversing S1 nerve roots. Moderate RIGHT foraminal narrowing impinges the exiting RIGHT L5 nerve root. Visualized pelvic bony structures: Normal. Paravertebral soft tissues: Normal. Adrenal glands are normal. Cholecystectomy clips. Aortic calcification. CT/CT lumbar spine wo con* [id number] IMPRESSION: 1. Chronic spondylolysis L5-S1 with slight grade 1 anterolisthesis. 2. Moderate central canal stenosis L2-L3. Moderate L3-4 and moderate to severe L4-5 due to disc bulging with facet arthropathy and ligamentum flavum hypertro phy. Impingement of the subarticular recess at these levels. 3. Shallow central protrusion L5-S1 with slight impingement on the traversing S1 nerve roots. 4. LEFT foraminal protrusion L3-4 impinges the exiting LEFT L3 nerve root with moderate LEFT foraminal narrowing.
--- NOTE | 2024-05-14 12:06 | CT_ITS ---
WS: [id number] CT THORACIC SPINE TECHNIQUE: Noncontrast CT of the thoracic spine with coronal and sagittal reformatted images. CLINICAL INFORMATION: fall DLP: 1089.[address] scans at [facility] use at least one of these dose optimization techniques: automated exposure control; mA and/or kV adjustment per patient size (includes targeted exams where dose is matched to clinical indication); or iterative reconstruction. FINDINGS: Mild compression superior endplate T12 with a small visualized fracture cleft. No retropulsion. This has an acute appearance. Partially visualized AICD. No other compression fractures. Spinal canal appears patent. Adrenal glands appear normal. Cholecystectomy clips. Small esophageal hiatal hernia. CT/CT thoracic spin wo con* [id number] IMPRESSION: Mild acute compression fracture superior endplate T12. No retropulsion.
[2024-05-14] MEDS: ondansetron 2 mg/ML SDV 2 mL 4 MG IVP (12:50)
[2024-05-14] MEDS: morphine 4 mg/mL SDV 1 mL IVP (12:50)
--- NOTE | 2024-05-14 13:58 | DCPLANNER ---
messaged ortho for er f/u
[2024-05-14 14:58] VITALS: BP 158/81; PULSE 78; O2SAT 96
== END 2024-05-14 14:59 | disposition home or self-care (01) ==
PROVIDERS: Emergency Provider Emergency Medicine; PCP Family Medicine
DX: R55 Syncope and collapse (principal); S22.080A Wedge compression fracture of T11-T12 vertebra, initial encounter for closed fracture; M47.897 Other spondylosis, lumbosacral region; W19.XXXA Unspecified fall, initial encounter; Z87.891 Personal history of nicotine dependence; Z79.01 Long term (current) use of anticoagulants
CPT/HCPCS: 70450; 72125; 72128; 72131; 80053; 85025; 85610; 93005; 96374; 96375; 97760; 99285; J2270; J2405; L0460

== ENCOUNTER → 2024-05-21 13:00 | Outpatient (BNVA) | payer OTHER, SELFPAY | PROVIDERS: PCP Family Medicine; Visit Provider Orthopaedic Surgery | DX: S22.080A Wedge compression fracture of T11-T12 vertebra, initial encounter for closed fracture (principal); X58.XXXA Exposure to other specified factors, initial encounter | CPT/HCPCS: 72072; 99203 ==

== ENCOUNTER 2024-05-27 07:55 | Outpatient (CLI) | payer OTHER, SELFPAY ==
--- NOTE | 2024-05-27 08:00 | NM_ITS ---
WS: [id number] NUCLEAR MEDICINE BONE SCAN Radiopharmaceutical: 25.8 Tc-99m MDP mCi IV Injection site: Antecubital Postinjection imaging delay: 1 hr CLINICAL INFORMATION: back pain COMPARISON: CT 05/14/2024 FINDINGS: Bone lesions: Acute appearing compression fracture T12 vertebral body. Focal punctate area of activity in the RIGHT anterior approximately 10th rib likely due to healing fracture. Soft tissue contours: Normal. Kidneys: Normal. 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 Acute appearing compression fracture T12 vertebral body superior endplate w ith focal uptake 2. Focal punctate area of activity in the RIGHT anterior approximately 10th ri b likely due to recent fracture.
== END 2024-05-27 07:56 | disposition home or self-care (01) ==
PROVIDERS: PCP Family Medicine; Visit Provider Orthopaedic Surgery
DX: S22.080A Wedge compression fracture of T11-T12 vertebra, initial encounter for closed fracture (principal); R93.7 Abnormal findings on diagnostic imaging of other parts of musculoskeletal system; M19.012 Primary osteoarthritis, left shoulder; M19.011 Primary osteoarthritis, right shoulder; M17.0 Bilateral primary osteoarthritis of knee
CPT/HCPCS: 78306; A9561

== ENCOUNTER → 2024-05-28 13:42 | Outpatient (BNVA) | payer OTHER, SELFPAY | PROVIDERS: PCP Family Medicine; Visit Provider Orthopaedic Surgery | DX: S22.080A Wedge compression fracture of T11-T12 vertebra, initial encounter for closed fracture (principal); Z09 Encounter for follow-up examination after completed treatment for conditions other than malignant neoplasm; X58.XXXA Exposure to other specified factors, initial encounter | CPT/HCPCS: 36415; 80053; 81001; 85025; 99214 ==

== ENCOUNTER 2024-06-01 16:24 | Observation (INO) | payer OTHER, SELFPAY ==
[2024-06-01] VITALS (21 sets, daily range): BP systolic 126–168; BP diastolic 58–85; PULSE 60–81; RESP 12–18; TEMP 36.3–36.7; O2SAT 94–100; BMI 26.0
--- NOTE | 2024-06-01 09:47 | SC_ITS ---
WS: [id number] C-arm fluoroscopy for thoracic kyphoplasty, 06/01/2024 Clinical Data: Surgery Comparison: Thoracic spine, 05/21/2024 Findings: Dr. Smith performed a T12 kyphoplasty. SC/C-arm FL for Kyphoplasty Impression: T12 kyphoplasty.
[2024-06-01] MEDS: sodium chloride 0.9% 1,000 ML 30 ML IV (10:30)
[2024-06-01 10:52] LABS: INR 1.15 (0.8-1.2)
--- NOTE | 2024-06-01 10:52 | ANES.PREANE2 ---
Pre-Anesthetic Assessment Height/Weight: Height 1.88 m Weight 92.079 kg Temp Pulse Resp BP Pulse Ox O2 Del Method 98.1 F 81 16 168/85 94 Room Air 06/01/24 10:13 06/01/24 10:13 06/01/24 10:13 06/01/24 10:13 06/01/24 10:13 06/01/24 10:15 Preop Diagnosis: T12 wedge osteoporotic compression fracture Operation Date: 06/01/24 12:10 Proposed Procedures p Kyphoplasty(Not Applicable) - Dante Smith DO Last intake: Intake Last Liquid Date 06/01/24 Last Liquid Time 06:00 Last Solid Date 05/31/24 Last Solid Time 20:00 Social No alcohol and No tobacco Exam alert, oriented x 3, clear to auscultation bilaterally and regular rate & rhythm Airway Submandibular: within normal limits Cervical ROM: within normal limits Mallampati: Class I CV/HEM Atrial Fibrillation, Arrythmia and Hypertension Neuropsych Syncope (Cardiac) Anesthetic Plan ASA status: 3 Anesthesia: General Medications/Allergies Home Medications ?Medication ?Instructions ?Recorded ?Confirmed ?Last Taken ?Type potassium chloride 10 mEq 10 meq PO BID #60 caps 10/19/20 05/29/24 05/31/24 Rx capsule,extended release tramadol 50 mg tablet 50 mg PO Q8H PRN Pain 01/24/21 05/29/24 05/31/24 History carbamazepine 200 mg tablet 300 mg (1.5 x 200 mg) PO TID #300 01/22/23 05/29/24 06/01/24 Rx (Tegretol) tabs gabapentin 300 mg capsule 300 mg PO TID #300 caps 01/22/23 05/29/24 06/01/24 Rx warfarin 5 mg tablet See Rx Instructions .Route .COMPLEX 05/14/24 05/29/24 05/27/24 History Vitamin D3 3 tab PO DAILY 05/29/24 05/29/24 05/31/24 History hydrocodone 5 mg-acetaminophen 325 1 tab PO Q6H PRN pain 05/29/24 05/29/24 05/31/24 History mg tablet Allergies Allergy/AdvReac Type Severity Reaction Status Date / Time fluticasone (From Flonase) Allergy ALGY-Hives Verified 06/01/24 10:27 prednisone Allergy ALGY-Hives Verified 06/01/24 10:27 Current Medications Generic Name Dose Route Start Last Admin Trade Name Reza PRN Reason Stop Dose Admin Sodium Chloride 1,000 mls @ 30 mls/hr 06/01/24 07:30 06/01/24 10:30 Sodium Chloride 0.9% IV 06/02/24 07:29 30 mls/hr .Q24H BREA Administration PFSH Anesthesia Medical History Elevated blood pressure reading Sinus node dysfunction Recurrent syncope Vaso vagal episode Glossopharyngeal neuralgia Surgical History History of permanent cardiac pacemaker placement H/O hernia repair Family History Grandfather Hypertension Father Hypertension Denies family history of Diabetes CAD (coronary artery disease) Clotting disorder Dementia Hyperlipidemia Psychiatric illness Chronic kidney disease (CKD) Suicide Anesthesia complication Bleeding disorder Family history of premature coronary artery disease Lung disease Cancer Stroke Social History Smoking and tobacco/nicotine status: never used tobacco/nicotine Alcohol intake: never Substance/Drug Use: never Data Anesthesia Coags 06/01/24 10:24 PT 15.50 H INR 1.15 Cardiac Studies: Echocardiogram Limited Views 08/31/19 Echocardiogram Ultrasound 09/29/19
--- NOTE | 2024-06-01 11:50 | W.PM.OPSUD ---
Surgery/Procedure H&P Update DATE OF PROCEDURE: June 01, 2024 DATE H&P PERFORMED: 05/28/24 H&P UPDATE INFORMATION: I have reviewed H&P completed within last 30 days, I have examined patient prior to procedure and No changes to prior documentation PREOP DIAGNOSIS: T12 wedge osteoporotic compression fracture PLANNED PROCEDURE: Operation Date: 06/01/24 12:10 Proposed Procedures p Kyphoplasty(Not Applicable) - Dante Smith DO
[2024-06-01] MEDS: ceFAZolin 2,000 mg SDV 2000 MG IVP ×2 (12:01→20:54)
[2024-06-01] MEDS: lidocaine-epi 1% 20 mL INJ INJECTION (12:32)
--- NOTE | 2024-06-01 13:05 | PM.OP ---
Operative Report Date of procedure: June 01, 2024 Pre-op diagnosis: T12 wedge osteoporotic traumatic compression fracture Post-op diagnosis: same Procedure done: T12 kyphoplasty Surgeon: Dante Smith DO Estimated blood loss (mL): 5 Procedure: T12 kyphoplasty Patient brought to the operative suite after undergoing anesthesia patient was placed in the prone position. All pressure well-padded. Patient's perl programmer also fashion. Skin incision was made over the T12 pedicle on the left. Awl was inserted through the pedicle. Drill was inserted into the vertebral body. The balloon was then inserted and inflated and deflated. The cement was then injected had good flow across the body. AP lateral fluoroscopy ensured that it was in good position. Wound was irrigated closed with nylon suture sterile dressing applied patient is transferred to the PACU in stable condition.
--- NOTE | 2024-06-01 13:23 | ANE.PACU2 ---
Inpatient post-anesthesia follow up: Vital signs: Temperature 97.3 F Pulse Rate 62 Respiratory Rate 16 Blood Pressure 134/64 Pulse Oximetry 97 Oxygen Delivery Me thod Room Air Oxygen Flow Rate 8 Fraction of Inspir ed Oxygen Hydration adequate: Yes Nausea and vomiting: No Pain level: Well controlled Mental status: Baseline
--- NOTE | 2024-06-01 13:52 | SUR.EXTENDED ---
Pt being held in OPS extended care recovery until bed becomes available on Med-surg. Pt will be 24 hour observation.
--- NOTE | 2024-06-01 14:06 | SUR.EXTENDED ---
VSS. Pt to have regular diet on transfer orders. Ham sandwich and chocolate pudding provided. Pt ate 100%. Denies N/V. Dressing to T12 area on back dry and intact. Pt alert and oriented watching TV. Call light within reach. Denies pain. Report given to ZEINA Ellison.
--- NOTE | 2024-06-01 16:52 | SUR.EXTENDED ---
1630 Report called to Anjali PASTRANA. There was discussion of why patient being admitted after surgery and if the proper channels for a ride home had been researched. In preop patient reported that he had no ride home and lives alone, per surgery policy patients cannot be discharged home alone or drive themselves home within 24 hours after having general anesthesia which patient had today. Order for admit to observation was given by surgeon. Patient dressing had small amount of drainage visible, it was shown to nurse on arrival to floor room. Patient awake and alert for transport. He has been eating and drinking well. Patients VSS: HR 64, O2 97%, BP 144/73, T 97.5 RR 16. Patient ambulated to bathroom and to floor bed after arriving to room.
[2024-06-01] MEDS: ketorolac 30 mg/mL INJ IVP (17:34)
[2024-06-01] MEDS: potassium chloride ER 10 mEq Tablet PO (17:35)
[2024-06-01] MEDS: docusate sodium 100 mg Capsule PO (17:35)
[2024-06-01] MEDS: lactated ringers 1,000 ML 90 ML IV (17:40)
[2024-06-01] MEDS: gabapentin 300 mg Capsule PO (20:54)
[2024-06-01] MEDS: carBAMazepine 200 mg Tablet 300 MG PO (20:54)
[2024-06-02] VITALS: BP 150/80; PULSE 60; RESP 17; TEMP 36.7; O2SAT 92
[2024-06-02] MEDS: ceFAZolin 2,000 mg SDV 2000 MG IVP (03:34)
[2024-06-02 04:00] VITALS: BP 142/83; PULSE 61; RESP 17; TEMP 36.5; O2SAT 93
[2024-06-02 07:10] VITALS: BP 173/74; PULSE 63; RESP 16; TEMP 36.8; O2SAT 94
--- NOTE | 2024-06-02 08:13 | PM.DCS ---
Discharge Providers Date of Admission: 06/01/24 16:24 Date of Discharge: June 02, 2024 Attending Provider at Admission: Dante Smith DO Attending Provider at Discharge: Dante Smith DO Primary Care Provider: Emelia Lew MD Reason for Visit Reason for Visit: S22.080 T12 Physical Exam Narrative: Patient sitting up in bed pain-free has been up ambulating no pain. At this point he will be discharged. Discharge Data Studies Completed and Pending Pending at discharge Category Date Time Status C-arm FL for Kyphoplasty Routine Exams 06/01/24 09:47 Taken Laboratory Results PT 15.50 SECONDS (12.1-14.9) H 06/01/24 10:24 INR 1.15 (0.8-1.2) 06/01/24 10:24 Vitals Last Vital Signs Temp 98.2 F 06/02/24 07:10 Pulse 63 06/02/24 07:10 Resp 16 06/02/24 07:10 BP 173/74 06/02/24 07:10 Pulse Ox 94 06/02/24 07:10 O2 Del Method Room Air 06/02/24 07:10 O2 Flow Rate 8 06/01/24 12:52 Discharge Plan Discharge Patient Disposition: Home Condition: Stable Prescriptions: New hydrocodone-acetaminophen 5-325 mg tablet 1 - 2 tab PO .Q4-6H Qty: 40 0RF Continued potassium chloride 10 mEq capsule, extended release 10 meq PO BID Qty: 60 3RF gabapentin 300 mg capsule 300 mg PO TID Qty: 300 3RF carbamazepine [Tegretol] 200 mg tablet 300 mg PO TID Qty: 300 3RF Rx Instructions: Stop if rash occurs warfarin 5 mg tablet See Rx Instructions .ROUTE .COMPLEX Rx Instructions: Take 1 tablet by mouth daily ,on Wednesdays take a one and a half tablets . Vitamin D3 3 tab PO DAILY Discontinued tramadol 50 mg tablet 50 mg PO Q8H PRN (Reason: Pain) hydrocodone-acetaminophen 5-325 mg tablet 1 tab PO Q6H PRN (Reason: pain) Discharge Orders: Discharge Order (Routine); Ordered 06/02/24 Ordered By: Dante Smith Referrals: Dante Smith DO [Physician] - 06/16/24 8:00 am [facility] [Occupational Therapist] - 07/02/24 9:00 am Discharge Diet: Advance as tolerated Discharge Activity: Limit activity as instructed Patient Instructions: Acute Wound Care (DC), Opioid Safety, Post Anesthesia Care Activity Restrictions/Additional Instructions: Thank you for [facility] for your care! The following is a list of instructions, from your provider, to follow upon your discharge to ensure you have the optimal recovery from your recent injury orsurgery. Follow-up care is a kessler part of your treatment and safety. Be sure to make and go to all appointments, and call your doctor if you are having problems. If you do not already have a follow-up appointment made, call Dr. Smith office in the next 1-3 days to make follow up appointment for 2 weeks at [phone]. It is also a good idea to know your test results and keep a list of the medicines you take. Medications will be prescribed for you at your provider's discretion. These medications are to be used as instructed; if they are taken more often that prescribed they will not be refilled early and in most cases will not be refilled at all. > When a refill is needed,you should contact donte ambrocio 2-3 business days before your prescription runs out. Medications will NOT be refilled by [facility] providers after hours! > Many pain medications contain Tylenol (Acetaminophen). Do not consume more than 4,000 mg of Tylenol per day in total with any combination ofmedications. > Pain medications can cause constipation. Please use an over the counter stool softener as directed, while taking pain medications. Consulty our local pharmacist with questions or recommendations on stool softeners. If constipation persists, contact our office or your primary care provider. > While under our care,you are not to receive pain medications or other controlled substances from any other provider unless our office is notified and approves. Any attempts to do so will result in refusal to prescribe any further pain medications and possible dismissal from our practice. ? Your wound and/or dressing should remain clean and dry for 2 days after surgery. On postoperative day 2 (48 hours after your surgery) the dressing (if present) should be removed and it is okay to shower and get the incision wet. Pad dry afterwards. No further dressing should be required from that point on. Do not put any creams or ointments on theincision > It is normal for there to be a small amount of discharge (bloody or blood tinged) present from a surgical wound for the first 1-3days. > The wound should be examined twice a day for signs of infection. Mild redness or bruising is to be expected but indications that an infection maybe starting would include; An increase in redness, swelling, or discharge, a foul odor present around the incision, and/or a fever greater than 101 ?F ? Showering is permitted, however we ask that you do not take a bath, sit in a whirlpool / Jacuzzi, or go swimming for 1 month. For only the first 2 days after surgery, lt wilt be necessary for you to cover your wound/dressing with plastic and tape to keep it dry. ? Walking is essential for the healing process after surgery. We would like you to slowly advance your walking. This should be done on relatively flat clear ground (inside or out) or can be done on a treadmill. Remember this goal does not have to happen all at once, slowly increase your distance and duration. This can be broken into more more than one walk per day as tolerated. Patients who walk as directed after surgery rarely require Physical Therapy. In the unlikely event this issue arises your provider will direct hospital staff to make the appropriate arrangements. ? No lifting over 5 pounds {a gallon of milk) or bending/twisting until further notice. Each of these activities places an unnecessary amount of stress onto the body and can impede the delicate healing process. > Instead of bending at the waist, keep your back straight and bend at the knees. > Instead of twisting your torso, keep your back straight and turn your entire body with your feet. ? You may sleep in any position which makes you comfortable. Many patients find comfort sleeping in a reclining chair. It is not abnormal to have difficulty sleeping for the first several weeks following your surgery. We recommend trying Benadry! or Tylenol PM as directed to help with your sleeping difficulties. Both medications are over the counter and available withoutprescription. ? NO SMOKING!!! Smoking dramatically increases the probability of developing postoperative wound infections. ? Common complaints after lumbar and/or thoracic spine surgery include, but are not limited to: numbness and/or tingling in the legs, pain around the incision and surrounding tissues, muscle spasms, or stiffness of the middle to low back. Contact our office if these symptoms persist or if an acute change occurs. ? No driving for the first 3-5days, and not while taking narcotics until seen at your follow-up appointment and cleared. There are no restrictions for riding on short trips, however if you take a longer trip, arrangements should be made to make regular stops to get out of the vehicle and stretch . ? Swelling is an unfortunate event that will take place with any surgery and is the primary source of your postoperative discomfort. While walking and regular approved activities helps control inflammation, there are additional steps you can take to minimizeswelling. > Place ice over the surgical site and surrounding tissue for twenty minutes, followed by applying a low/medium heat (heating pad) for an additional twenty minutes every 1-2 hours as needed for painrelief. > You may use of over the counter anti-inflammatory medications (Ibuprofen, Motrin, Aleve, Advil, etc) as directed on the package label. These types of medicines wm significantly reduce the amount of discomfort you experience after surgery from swelling. It should be noted that if you have and allergy to any of these medications, or a history of ulcers or kidney disease you should consult you primary care provider prior to starting these medications. Discharge Attestations Time Spent in Discharge Care*: less than 30 min Status at Discharge: Cognitive status at discharge: cognitively intact, Behavioral status at discharge: cooperative, Quality Metrics Clinical Quality Measures [ No reported AMI, CVA or VTE this stay] Coding Level of Care Code Acute Code for Chg Fwbarrera
--- NOTE | 2024-06-02 08:14 | PM.MISC ---
Miscellaneous Note Purpose of Documentation: Reason for admission Note: Patient is s/p kyphoplasty 06/01/2024. Briefly, patient sustained injury/fracture to thoracic spine as a result of neurocardiac syncope. He underwent General anesthesia on 06/01/2024 for kyphoplasty. Due to the nature of his cardiac condition, admission for observation would certainly be appropriate after undergoing General anesthesia.
[2024-06-02] MEDS: potassium chloride ER 10 mEq Tablet PO (08:17)
[2024-06-02] MEDS: carBAMazepine 200 mg Tablet 300 MG PO (08:17)
[2024-06-02] MEDS: docusate sodium 100 mg Capsule PO (08:17)
[2024-06-02] MEDS: gabapentin 300 mg Capsule PO (08:17)
[2024-06-02 08:26] VITALS: BP 173/74; PULSE 63; RESP 16; TEMP 36.8; O2SAT 94
--- NOTE | 2024-06-02 08:28 | PC.NURSE ---
Discharge instructions provided to pt. NO questions or concerns voiced at this time
--- NOTE | 2024-06-02 08:28 | PC.CHAP ---
Pastoral Care Encounter/Spiritual Assessment Type of Contact [] Declined field secretary visit [] Patient/Family/Request visit [] Outpatient visit [] Follow-up visit [] Physician referral [] Code/Alert [x] Routine visit [] Staff referral [] Actively dying [] Patient sleeping [] Family support [] [] Out of room [] Palliative care [] [] Receiving care in room [] Pre-surgical visit [] Trauma [] Long length of stay [] ICU visit [] Other: Relational/Emotional Strength [x] Patient feels connected with others/family/visitors/staff [] Distress [] Loneliness/isolation [] Abandonment Spirituality of Patient [x] Person of [place] [] Attends Catholic of their [place] [x] Believes in Prayer [] Reads Bible or Zoroastrianism materials [] There are Spiritual issues to be addressed Pattern Molder Interventions [x] Prayer [x] Active listening [] Non-anxious presence [x] Spiritual/emotional support [] Crisis/trauma care [] Spiritual counseling [] Bereavement support [] Provided bereavement packet [] Provided Bible/devotional materials [] Provided toy/stuffed animal, coloring book to patient or family member [] Provided Communion [] Anointing/[place] [] Salvation [x] Completed spiritual assessment [] Other: Impact on Illness or Injury [] Angry [] Fearful [] Anxious [] Often cries [] Exhaustion [] Unable to work [] Unable to attend tenriism [] Unable to walk/stand [] Unable to read [] Unable to drive [] Unable to eat/drink [] Unable to sleep [] Unable to be with family [] Patient intubated [] Other: Summary Time spent with patient 5 min
== END 2024-06-02 08:53 | disposition home or self-care (01) ==
LOC: MEDSURG 16:25
PROVIDERS: Admitting Provider Orthopaedic Surgery; PCP Family Medicine; Visit Provider Orthopaedic Surgery
PROC: (CPT 22513; principal; 2024-06-01 11:50)
DX: S22.080A Wedge compression fracture of T11-T12 vertebra, initial encounter for closed fracture (principal); X58.XXXA Exposure to other specified factors, initial encounter; Z95.0 Presence of cardiac pacemaker; Z82.49 Family history of ischemic heart disease and other diseases of the circulatory system; Z87.891 Personal history of nicotine dependence; I48.91 Unspecified atrial fibrillation; I10 Essential (primary) hypertension; I49.9 Cardiac arrhythmia, unspecified
CPT/HCPCS: 22513; 36415; 76000; 85610; G0378; J0131; J0690; J1100; J1885; J2405; J2704; J3010; J3490; J7030; J7120; J9999

== ENCOUNTER → 2024-06-16 13:59 | Outpatient (BNVA) | payer OTHER, SELFPAY | PROVIDERS: PCP Family Medicine; Visit Provider Orthopaedic Surgery | DX: Z47.89 Encounter for other orthopedic aftercare (principal) | CPT/HCPCS: 99024 ==

== ENCOUNTER → 2024-06-23 13:45 | Outpatient (BNVA) | payer OTHER, SELFPAY | PROVIDERS: PCP Family Medicine; Visit Provider Orthopaedic Surgery | DX: Z53.9 Procedure and treatment not carried out, unspecified reason (principal) | CPT/HCPCS: 99024 ==

== ENCOUNTER → 2024-08-05 10:09 | Outpatient (BNVA) | payer OTHER, SELFPAY | PROVIDERS: PCP Family Medicine; Visit Provider Internal Medicine Cardiovascular Disease | DX: Z45.018 Encounter for adjustment and management of other part of cardiac pacemaker (principal) | CPT/HCPCS: 93296 ==

== ENCOUNTER → 2024-12-09 14:22 | Outpatient (BNVA) | payer OTHER, SELFPAY | PROVIDERS: PCP Family Medicine; Visit Provider Internal Medicine Cardiovascular Disease | DX: Z45.018 Encounter for adjustment and management of other part of cardiac pacemaker (principal) | CPT/HCPCS: 93296 ==

== ENCOUNTER → 2025-01-19 11:54 | Outpatient (BNVA) | payer OTHER, SELFPAY | PROVIDERS: PCP Family Medicine; Visit Provider Specialist | DX: G52.1 Disorders of glossopharyngeal nerve (principal); R03.0 Elevated blood-pressure reading, without diagnosis of hypertension | CPT/HCPCS: 99214 ==